=== PATIENT | female | born 1950 | race Caucasian/White ===

== ENCOUNTER → 2016-04-19 | Outpatient (CLI) | payer MEDICARE ==
--- NOTE | 2016-04-19 16:53 | CT ---
EXAMINATION TYPE: CT abdomen pelvis w con DATE OF EXAM: 04/19/2016 4:34 PM COMPARISON: NONE HISTORY: Granuloma around region of previous PEG tube. 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 Abdominal pelvic pain K63.2, R10.9 CT DLP: 1030.00 mGycm Automated exposure control for dose reduction was used. TECHNIQUE: Helical acquisition of images from the lung bases through the pelvis have been completed. CONTRAST: Performed with Oral Contrast and with IV Contrast, patient injected with 80 mL of Visipaque 320. FINDINGS: Tract in the left upper quadrant likely due to previous PEG tube with soft tissue attenuati on extending to the subcutaneous fat to the abdominal surface anteriorly. LUNG BASES: Some minimal basilar atelectatic change or scarring is present. There is a large partial intrathoracic stomach, hiatal hernia. AORTA: No significant abnormality is appreciated. LIVER/GB: Dependent hyperdense focus within the gallbladder compatible with stone. Liver shows no mas s. PANCREAS: No significant abnormality is seen. SPLEEN: No significant abnormality is seen. ADRENALS: No significant abnormality is seen. KIDNEYS: Upper pole of the right kidney shows loss of parenchyma, there is mild caliectasis at this l evel, this is likely due to prior scarring. REPRODUCTIVE ORGANS: No significant abnormality is seen BOWEL: Nonspecific wall thickening of the colon is indeterminate, difficult to exclude a mucosal les ion, correlate to exclude colitis. FREE AIR: No Free Air visible ASCITES: None visible. PELVIC ADENOPATHY: None visualized. RETROPERITONEAL ADENOPATHY: No Retroperitoneal Adenopathy visible. URINARY BLADDER: No significant abnormality is seen. OSSEOUS STRUCTURES: No significant abnormality is seen. IMPRESSION: LARGE HIATAL HERNIA WITH INTRATHORACIC STOMACH. CHOLELITHIASIS. EVIDENCE OF PRIOR SURGERY, PEG TUBE I S NO LONGER PRESENT. PROBABLE CHRONIC SCARRING RIGHT KIDNEY. FINDINGS IN THE COLON DESCRIBED.
== END | disposition home or self-care (01) ==
LOC: RADCTMAIN 14:33
PROVIDERS: ATTEND Surgery
DX: K80.20 Calculus of gallbladder without cholecystitis without obstruction (principal); K44.9 Diaphragmatic hernia without obstruction or gangrene
CPT/HCPCS: 82565; 84520; 74177; 36415; Q9967

== ENCOUNTER 2018-08-27 16:14 | Emergency (ER) | payer MEDICARE ==
[2018-08-27 16:29] VITALS: PULSE 80; RESP 18; TEMP 98
--- NOTE | 2018-08-27 16:48 | ED ---
General Adult HPI - General Chief complaint: Recheck/Abnormal Lab/Rx Stated complaint: hypoglycemia Time Seen by Provider: 08/27/18 16:38 Source: patient Mode of arrival: EMS Limitations: no limitations - History of Present Illness Initial comments: Dictation was produced using [employer] dictation software. please excuse any grammatical, word or spelling errors. Chief Complaint: 67-year-old female past medical history of insulin-dependent diabetes mellitus since with hypoglycemic episode. History of Present Illness: Patient is a 67-year-old female she is an insulin- dependent diabetic. She takes sliding scale insulin. Patient states she gave herself 30 units today for blood sugar 149. She had breakfast. She normally then then checks her blood sugar at 5 PM. Patient reports that she woke up to family members who found her on the ground. EMS was called. Her blood sugar was checked and was found to be 41 she was given oral glucose which woke her right up. Patient denies any pain complaints at this time. Patient states she forgot to eat lunch today like she normally does. Patient has no complaints at this time. Patient denies any episode like this in the past. She is adamant that her hypoglycemia was from forgetting to eat. The ROS documented in this emergency department record has been reviewed and confirmed by me. Those systems with pertinent positive or negative responses have been documented in the HPI. All other systems are other negative and/or noncontributory. PHYSICAL EXAM: General Impression: Alert and oriented x3, not in acute distress HEENT: Normocephalic atraumatic, extra-ocular movements intact, pupils equal and reactive to light bilaterally, mucous membranes moist. Cardiovascular: Heart regular rate and rhythm, S1&S2 audible, no murmurs, rubs or gallops Chest: Lungs clear to auscultation bilaterally, no rhonchi, no wheeze, no rales Abdomen: Bowel sounds present, abdomen soft, non-tender, non-distended, no organomegaly Musculoskeletal: Pulses present and equal in all extremities, no peripheral edema Motor: no focal deficits noted Neurological: CN II-XII grossly intact, no focal motor or sensory deficits noted Skin: Intact with no visualized rashes Psych: Normal affect and mood ED course: 67-year-old female presents with hypoglycemic episode. She was found unresponsive. Blood sugar upon EMS arrival was 41. She is given glucose. The glucose was checked again responded to 20. Patient tolerate by mouth at bedside. Vital signs upon arrival are within acceptable limits. Patient has no complaints at this time. Physical examination is benign.Patient reevaluated and found to be in stable medical condition. Patient warned about the dangers of hypoglycemia and taking insulin without proper glucose intake. She understands. Repeat blood glucose was obtained on a bee and except limits. Patient clear for discharge. Parameters discussed. Patient understandable agreeable to disposition. - Related Data Home Medications Medication Instructions Recorded Confirmed Glucagon Emergency Kit 1 mg IM ONCE PRN 08/27/18 08/27/18 Ibandronate Sodium [Boniva] 150 mg PO Q30D 08/27/18 08/27/18 Insulin Glargine,Hum.rec.anlog 11 unit SQ HS 08/27/18 08/27/18 [Lantus Solostar] Insulin Lispro [humaLOG Kwikpen] 13 unit SQ AC-TID 08/27/18 08/27/18 Insulin Lispro [humaLOG Kwikpen] See Protocol SQ AC-TID 08/27/18 08/27/18 Lacosamide [Vimpat] 200 mg PO BID 08/27/18 08/27/18 Sertraline [Zoloft] 50 mg PO DAILY 08/27/18 08/27/18 Simvastatin [Zocor] 20 mg PO HS 08/27/18 08/27/18 Valsartan/Hydrochlorothiazide 1 tab PO DAILY 08/27/18 08/27/18 [Valsartan-Hctz 320-25 mg Tab] amLODIPine [Norvasc] 5 mg PO DAILY 08/27/18 08/27/18 Allergies Allergy/AdvReac Type Severity Reaction Status Date / Time No Known Allergies Allergy Verified 08/27/18 16:32 Review of Systems ROS Statement: Those systems with pertinent positive or pertinent negative responses have been documented in the HPI. ROS Other: All systems not noted in ROS Statement are negative. Past Medical History Past Medical History: Diabetes Mellitus, Seizure Disorder, Thyroid Disorder History of Any Multi-Drug Resistant Organisms: None Reported Additional Past Surgical History / Comment(s): trach Past Psychological History: No Psychological Hx Reported Smoking Status: Never smoker Past Alcohol Use History: None Reported Past Drug Use History: None Reported General Exam Limitations: no limitations Course Vital Signs 08/27/18 16:23 Temperature 98.0 F Pulse Rate 80 Respiratory 18 Rate Blood Pressure 178/86 O2 Sat by Pulse 97 Oximetry Medical Decision Making - Lab Data Result diagrams: 08/27/18 16:58 08/27/18 16:58 Lab Results 08/27/18 08/27/18 Range/Units 16:58 16:58 WBC 13.9 H (3.8-10.6) k/uL RBC 4.92 (3.80-5.40) m/uL Hgb 14.3 (11.4-16.0) gm/dL Hct 44.0 (34.0-46.0) % MCV 89.5 (80.0-100.0) fL MCH 29.0 (25.0-35.0) pg MCHC 32.4 (31.0-37.0) g/dL RDW 13.8 (11.5-15.5) % Plt Count 243 (150-450) k/uL Neutrophils % 90 % Lymphocytes % 6 % Monocytes % 3 % Eosinophils % 1 % Basophils % 0 % Neutrophils # 12.5 H (1.3-7.7) k/uL Lymphocytes # 0.9 L (1.0-4.8) k/uL Monocytes # 0.4 (0-1.0) k/uL Eosinophils # 0.1 (0-0.7) k/uL Basophils # 0.0 (0-0.2) k/uL Sodium 138 (137-145) mmol/L Potassium 3.6 (3.5-5.1) mmol/L Chloride 105 (98-107) mmol/L Carbon Dioxide 25 (22-30) mmol/L Anion Gap 8 mmol/L BUN 23 H (7-17) mg/dL Creatinine 0.94 (0.52-1.04) mg/dL Est GFR (CKD-EPI)AfAm 73 (>60 ml/min/1.73 sqM) Est GFR (CKD-EPI)NonAf 63 (>60 ml/min/1.73 sqM) Glucose 232 H (74-99) mg/dL Calcium 9.3 (8.4-10.2) mg/dL Total Bilirubin 0.3 (0.2-1.3) mg/dL AST 25 (14-36) U/L ALT 41 (9-52) U/L Alkaline Phosphatase 134 H (38-126) U/L Total Protein 6.9 (6.3-8.2) g/dL Albumin 4.1 (3.5-5.0) g/dL Disposition Clinical Impression: Hypoglycemia Disposition: HOME SELF-CARE Condition: Good Instructions (If sedation given, give patient instructions): Hypoglycemia in a Person with Diabetes (ED) Is patient prescribed a controlled substance at d/c from ED?: No Referrals: Brian Mcpherson MD [Primary Care Provider] - 1-2 days Time of Disposition: 17:37
[2018-08-27 17:06] LABS: Basophils % (A) 0 %; Eosinophils # (A) 0.1 k/uL (0-0.7); Eosinophils % (A) 1 %; HGB 14.3 gm/dL (11.4-16.0); Lymphocytes # (A) 0.9 k/uL (1.0-4.8); Lymphocytes % (A) 6 %; MCHC 32.4 g/dL (31.0-37.0); MCV 89.5 fL (80.0-100.0); Mean Platelet Volume 7.7; Monocytes # (A) 0.4 k/uL (0-1.0); Monocytes % (A) 3 %; Neutrophils # (A) 12.5 k/uL (1.3-7.7); Neutrophils % (A) 90 %; Platelet Count 243 k/uL (150-450); RBC 4.92 m/uL (3.80-5.40); RDW 13.8 % (11.5-15.5); WBC 13.9 k/uL (3.8-10.6)
[2018-08-27 17:17] LABS: Albumin 4.1 g/dL (3.5-5.0); Calcium 9.3 mg/dL (8.4-10.2); Potassium 3.6 mmol/L (3.5-5.1); Total Bilirubin 0.3 mg/dL (0.2-1.3); Total Protein 6.9 g/dL (6.3-8.2)
[2018-08-27 18:12] VITALS: BP 138/73
[2018-08-27 18:17] LABS: Glucose,Whole Blood 295 mg/dL (75-99)
[2018-08-28 07:51] LABS: Glucose,Whole Blood 202 mg/dL (75-99)
== END 2018-08-27 18:08 | disposition home or self-care (01) ==
LOC: EC 16:14
DX: E11.649 Type 2 diabetes mellitus with hypoglycemia without coma (principal); G40.909 Epilepsy, unspecified, not intractable, without status epilepticus; Z79.4 Long term (current) use of insulin; Z79.899 Other long term (current) drug therapy
CPT/HCPCS: 36415; 80053; 85025; 99285

== ENCOUNTER 2019-07-17 13:35 | Emergency (ER) | payer MEDICARE ==
[2019-07-17 13:40] LABS: Glucose,Whole Blood 126 mg/dL (75-99)
[2019-07-17 13:45] VITALS: PULSE 74; RESP 18
[2019-07-17] MEDS ORDERED: LIDOCAINE 1% INJ 10MG/ML (20 ML MDV) SQ STA (13:55)
--- NOTE | 2019-07-17 15:15 | CT ---
EXAMINATION TYPE: CT brain catherine wo con DATE OF EXAM: 07/17/2019 COMPARISON: None HISTORY: Fall, right surparorbital injury. CT DLP: 1307.4 mGycm, Automated exposure control for dose reduction was used. CONTRAST: Patient injected with 0 mL of Isovue 300. CT of the brain is performed utilizing 3 mm thick sections through the posterior fossa and 3 mm thick sections through the remaining calvarium. Study is performed within 24 hours of arrival to the hospital. No abnormal hyperdensity is present to suggest an acute intracranial hemorrhage. No mass lesion is evident. No acute infarcts are evident. Ventricles and sulci are appropriate for the patient age. Paranasal sinuses and mastoid air cells within the [id number] are clear. There is superficial soft tissue swelling over the frontal and right supraorbital regions. No underly ing fracture is evident of the frontal bone. Subcutaneous air is present. Note is made of a nasal bone fracture with some displacement left lateral direction. Ethmoid air cell s appear intact. Orbital floors as visualized appear intact IMPRESSIONS: 1. No acute intracranial process. 2. Nasal bone fractures with some displacement of the left lateral direction. CT cervical spine. COMPARISON: None CT of the cervical spine is performed in the axial plane at 2 mm thick sections. Reconstructed image s in the coronal, and sagittal plane are reviewed on the computer. No acute fractures are evident. Vertebral body alignment is normal. There is loss of disc height C3-4 C4-5 C5-6. Some endplate spurring is present at C5 Vertebral body heights are preserved. There is right paracentral endplate spurring at C5 with moderate anterior thecal sac compression. AP spinal canal stenosis is not present. Uncovertebral joint hypertrophy C5-6 has mild to moderate bilat eral foraminal stenosis at this level. Uncovertebral joint hypertrophy at C4-5 has moderate bilateral foraminal stenosis. IMPRESSIONS: 1. No acute osseous abnormality cervical spine. 2. Degenerative disc changes C3-4 through C6-7. 3. Right paracentral endplate spurring at C5 has moderate anterior thecal sac compression without AP spinal canal stenosis. 4. Uncovertebral joint hypertrophy with mild to moderate foraminal narrowing C5-6 and moderate forami nal narrowing C4-5.
[2019-07-17] MEDS ORDERED: AMOXIC-POT CLAV 875MG STARTER PACK 2 TAB BTL PO STA (16:07)
--- NOTE | 2019-07-17 16:07 | ED ---
Fall HPI - General Chief Complaint: Fall Stated Complaint: Fall, head injury Time Seen by Provider: 07/17/19 13:36 Source: patient, EMS Mode of arrival: EMS - Related Data Home Medications Medication Instructions Recorded Confirmed Ibandronate Sodium [Boniva] 150 mg PO Q30D 08/27/18 07/17/19 Lacosamide [Vimpat] 200 mg PO BID 08/27/18 07/17/19 Valsartan/Hydrochlorothiazide 1 tab PO DAILY 08/27/18 07/17/19 [Valsartan-Hctz 320-25 mg Tab] amLODIPine [Norvasc] 5 mg PO DAILY 08/27/18 07/17/19 Atorvastatin Calcium [Lipitor] 20 mg PO DAILY 07/17/19 07/17/19 Insulin Lispro [humaLOG Kwikpen] See Protocol SQ TID 07/17/19 07/17/19 Sertraline HCl [Zoloft] 25 mg PO DAILY 07/17/19 07/17/19 Previous Rx's Medication Instructions Recorded Amoxicillin/Potassium Clav 1 each PO Q12HR 7 Days #14 tab 07/17/19 [Augmentin 875-125 Tablet] Allergies Allergy/AdvReac Type Severity Reaction Status Date / Time No Known Allergies Allergy Verified 07/17/19 15:27 Review of Systems ROS Statement: Those systems with pertinent positive or pertinent negative responses have been documented in the HPI. ROS Other: All systems not noted in ROS Statement are negative. Past Medical History Past Medical History: Diabetes Mellitus, Seizure Disorder, Thyroid Disorder History of Any Multi-Drug Resistant Organisms: None Reported Additional Past Surgical History / Comment(s): trach Past Psychological History: No Psychological Hx Reported Smoking Status: Never smoker Past Alcohol Use History: None Reported Past Drug Use History: None Reported General Exam Limitations: no limitations Course Vital Signs 07/17/19 07/17/19 13:41 16:26 Temperature 97.5 F L 98.1 F Pulse Rate 74 74 Respiratory 18 18 Rate Blood Pressure 155/81 153/71 O2 Sat by Pulse 100 98 Oximetry - Reevaluation(s) Reevaluation #1: 07/17/19 16:07 PA supervision: I pursued [id number] evaluation the patient she states she did fall striking her forehead she initially declined any imaging studies. She later did want them CAT scan is performed showing no acute findings patient does have a 4 head laceration which will be repaired. Patient is awake alert oriented 3 Natalia Coma Scale of 15. I do agree with the assessment and plan. Medical Decision Making - Lab Data Lab Results 07/17/19 07/17/19 Range/Units 13:38 16:07 POC Glucose (mg/dL) 126 H 82 (75-99) mg/dL POC Glu Manager [employer] Mi Frey Joanna Disposition Clinical Impression: Fall, Nose fracture, Hypoglycemia Disposition: HOME SELF-CARE Condition: Stable Instructions (If sedation given, give patient instructions): Nasal Fracture (ED), Hypoglycemia in a Person with Diabetes (ED), Fall Prevention (ED) Additional Instructions: Take antibiotics as directed. Follow-up with primary care provider and ENT tomorrow. Return to ER if condition worsens. Please return for suture removal: Hand: 7-10 days Face: 5 days Chest/abdomen: 12-14 days Extremities: 7-10 days Scalp: 7 days Eyebrow: 5-7 days Foot/sole: 12-14 days Please monitor for signs and symptoms of infection including: redness, warmth, drainage, discharge. Please return to ED if these signs or symptoms occur, new signs or symptoms develop or if condition worsens in anyway. Prescriptions: Amoxicillin/Potassium Clav [Augmentin 875-125 Tablet] 1 each PO Q12HR 7 Days #14 tab Is patient prescribed a controlled substance at d/c from ED?: No Referrals: Glynn Manning MD [STAFF PHYSICIAN] - 1-2 days Brian Mcpherson MD [Primary Care Provider] - 1-2 days Del Mccormack MD [STAFF PHYSICIAN] - 1-2 days
--- NOTE | 2019-07-17 16:08 | ED ---
General Adult HPI - General Chief complaint: Fall Stated complaint: Fall, head injury Time Seen by Provider: 07/17/19 13:36 Source: patient, EMS, RN notes reviewed, old records reviewed Mode of arrival: EMS Limitations: no limitations - History of Present Illness Initial comments: 68-year-old female patient past history of diabetes presents to ED for chief complaint of fall. Patient ports that she does take sliding scale insulin as well as long acting Lantus. Reports that she had not eaten this morning. Patient reports that she started in her bathroom felt dizzy fell, hitting her face on the counter. I believe that she lost consciousness. Call for her daughter, daughter came to her bleeding, called EMS. When EMS came patient had a blood sugar of 50. She was given apple juice and increase to 120. Patient does have a laceration to her forehead. Reports a tetanus updated the last 3 years. Denies any other complaints. Denies any headache changes in vision neck pain. Systemic: Pt denies fatigue, fever/chills, rash. Pt denies weakness, night sweats, weight loss. Neuro: Pt denies headache, visual disturbances, syncope or pre-syncope. HEENT: Pt denies ocular discharge or irritation, otalgia, rhinorrhea, pharyngitis or notable lymphadenopathy. Cardiopulmonary: Pt denies chest pain, SOB, heart palpitations, dyspnea on exertion. Abdominal/GI: Pt denies abdominal pain, n/v/d. : Pt denies dysuria, burning w/ urination, frequency/urgency. Denies new onset urinary or bowel incontinence. MSK: Pt denies myalgia, loss of strength or function in extremities. Neuro: Pt denies new onset weakness, paresthesias. - Related Data Home Medications Medication Instructions Recorded Confirmed Ibandronate Sodium [Boniva] 150 mg PO Q30D 08/27/18 07/17/19 Lacosamide [Vimpat] 200 mg PO BID 08/27/18 07/17/19 Valsartan/Hydrochlorothiazide 1 tab PO DAILY 08/27/18 07/17/19 [Valsartan-Hctz 320-25 mg Tab] amLODIPine [Norvasc] 5 mg PO DAILY 08/27/18 07/17/19 Atorvastatin Calcium [Lipitor] 20 mg PO DAILY 07/17/19 07/17/19 Insulin Lispro [humaLOG Kwikpen] See Protocol SQ TID 07/17/19 07/17/19 Sertraline HCl [Zoloft] 25 mg PO DAILY 07/17/19 07/17/19 Previous Rx's Medication Instructions Recorded Amoxicillin/Potassium Clav 1 each PO Q12HR 7 Days #14 tab 07/17/19 [Augmentin 875-125 Tablet] Allergies Allergy/AdvReac Type Severity Reaction Status Date / Time No Known Allergies Allergy Verified 07/17/19 15:27 Review of Systems ROS Statement: Those systems with pertinent positive or pertinent negative responses have been documented in the HPI. ROS Other: All systems not noted in ROS Statement are negative. Past Medical History Past Medical History: Diabetes Mellitus, Seizure Disorder, Thyroid Disorder History of Any Multi-Drug Resistant Organisms: None Reported Additional Past Surgical History / Comment(s): trach Past Psychological History: No Psychological Hx Reported Smoking Status: Never smoker Past Alcohol Use History: None Reported Past Drug Use History: None Reported General Exam - General Exam Comments Initial Comments: Constitutional: NAD, AOX3, Pt has pleasant affect. HEENT: NC/AT, trachea midline, neck supple, no lymphadenopathy. Posterior pharynx non erythematous, without exudates. External ears appear normal, without discharge. Mucous membranes moist. Eyes PERRLA, EOM intact. There is no scleral icterus. No pallor noted. Cardiopulmonary: RRR, no murmurs, rubs or gallops, no JVD noted. Lungs CTAB in anterior and posterior romero. No peripheral edema. Abdominal exam: Abdomen soft and non-distended. Abdomen non-tender to palpation in all 4 quadrants. Bowel sounds active in LLQ. No hepatosplenomegaly. No ecchymosis Neuro: CN II-XII intact. No nuchal rigidity. No raccon eyes, no ho sign, no hemotympanum. No cervical spinal tenderness. MSK: 5 cm stellate laceration forehead. Vigorously irrigated approximated with 5 simple interrupted sutures. Abrasion to bridge of nose. No septal hematoma. No posterior calf tenderness bilaterally, homans sign negative bilaterally. Posterior tibialis and radial pulse +2 bilaterally. Sensation intact in upper and lower extremities. Full active ROM in upper and lower extremities, 5/5 stregnth. Limitations: no limitations Course Vital Signs 07/17/19 13:41 Temperature 97.5 F L Pulse Rate 74 Respiratory 18 Rate Blood Pressure 155/81 O2 Sat by Pulse 100 Oximetry Procedures - Laceration Laceration #1 Consent Obtained: verbal consent Indication: laceration Site: face Size (cm): 5 Description: stellate Depth: simple, single layer Anesthetic Used: lidocaine 1% Anesthesia Technique: local infiltration Amount (mls): 3 Pre-repair: wound explored, irrigated extensively, deep structures intact Type of Sutures: nylon Size of Sutures: 6-0 Number of Sutures: 5 Technique: simple, interrupted Patient Tolerated Procedure: well, no complications Medical Decision Making - Medical Decision Making 68-year-old female patient past history of diabetes presents to ED for chief complaint of fall. Patient ports that she does take sliding scale insulin as well as long acting Lantus. Reports that she had not eaten this morning. Patient reports that she started in her bathroom felt dizzy fell, hitting her face on the counter. I believe that she lost consciousness. Call for her daughter, daughter came to her bleeding, called EMS. When EMS came patient had a blood sugar of 50. She was given apple juice and increase to 120. Patient does have a laceration to her forehead. Reports a tetanus updated the last 3 years. Denies any other complaints. Denies any headache changes in vision neck pain. Pt VSS, afebrile. Physical exam displayed: 5 cm stellate laceration forehead. Vigorously irrigated approximated with 5 simple interrupted sutures. Abrasion to bridge of nose. No septal hematoma. 5 cm stellate laceration forehead. Vigorously irrigated approximated with 5 simple interrupted sutures. Abrasion to bridge of nose. No septal hematoma. Patient initially declined any sort of intracranial imaging. Upon repeat evaluation patient was complaining of some mild neck pain. Intracranial imaging was again recommended and she did consent. CT of the brain slight nasal bone fracture with some displacement in the left lateral direction. CT cervical spine didn't display any acute osseous abnormality. Degenerative disc changes are noted. Bloodsugar 126. Laceration was repaired patient will be started on Augmentin of discharge and primary care follow-up as well as ENT follow-up. Patient fall likely hypoglycemic in nature, education patient in regards to eating and morning due to long-acting insulin. Case discussed in depth and patient seen by Dr. Torres. - Lab Data Lab Results 07/17/19 Range/Units 13:38 POC Glucose (mg/dL) 126 H (75-99) mg/dL POC Glu Draw [employer] Operator ID Mi Juarez Disposition Clinical Impression: Fall, Nose fracture, Hypoglycemia Disposition: HOME SELF-CARE Condition: Stable Instructions (If sedation given, give patient instructions): Fall Prevention (ED), Hypoglycemia in a Person with Diabetes (ED), Nasal Fracture (ED) Additional Instructions: Take antibiotics as directed. Follow-up with primary care provider and ENT tomorrow. Return to ER if condition worsens. Please return for suture removal: Hand: 7-10 days Face: 5 days Chest/abdomen: 12-14 days Extremities: 7-10 days Scalp: 7 days Eyebrow: 5-7 days Foot/sole: 12-14 days Please monitor for signs and symptoms of infection including: redness, warmth, drainage, discharge. Please return to ED if these signs or symptoms occur, new signs or symptoms develop or if condition worsens in anyway. Prescriptions: Amoxicillin/Potassium Clav [Augmentin 875-125 Tablet] 1 each PO Q12HR 7 Days #14 tab Is patient prescribed a controlled substance at d/c from ED?: No Referrals: Brian Mcpherson MD [Primary Care Provider] - 1-2 days Glynn Manning MD [STAFF PHYSICIAN] - 1-2 days Del Mccormack MD [STAFF PHYSICIAN] - 1-2 days
[2019-07-17 16:09] LABS: Glucose,Whole Blood 82 mg/dL (75-99)
[2019-07-17 16:27] VITALS: BP 153/71; TEMP 98.1
== END 2019-07-17 16:27 | disposition home or self-care (01) ==
LOC: EC 13:35
DX: S01.81XA Laceration without foreign body of other part of head, initial encounter (principal); S02.2XXA Fracture of nasal bones, initial encounter for closed fracture; E11.649 Type 2 diabetes mellitus with hypoglycemia without coma; G40.909 Epilepsy, unspecified, not intractable, without status epilepticus; Z79.4 Long term (current) use of insulin; Z79.899 Other long term (current) drug therapy; W18.09XA Striking against other object with subsequent fall, initial encounter
CPT/HCPCS: 36415; 72125; 70450; 99284; 12013; J2001

== ENCOUNTER 2023-06-29 00:29 | Emergency (ER) | payer MEDICARE ==
[2023-06-29 00:38] VITALS: RESP 16; TEMP 98.5
[2023-06-29 00:46] LABS: Glucose,Whole Blood 111 mg/dL (70-110)
--- NOTE | 2023-06-29 01:39 | ED ---
Recheck HPI - General Chief Complaint: Recheck/Abnormal Lab/Rx Stated Complaint: Hypoglycemia Time Seen by Provider: 06/29/23 00:34 Source: patient, EMS Mode of arrival: EMS Limitations: no limitations - History of Present Illness Initial Comments: Leena is a pleasant 72-year-old female with a history of insulin-dependent diabetes who presents to the ER today via EMS for treatment of hypoglycemia. Patient reports that she took her usual insulin dose yesterday evening, she states she drank some apple juice that did not seem to sit well in her stomach and then ate dinner but got nauseated and vomited up her dinner. During the evening she was found to be hypoglycemic EMS arrived on scene got her to drink some orange juice and eat half a peanut butter sandwich her glucose improved transiently to the 90s but then dipped to the 50s again they decided to bring her to the hospital for further evaluation. Patient was reporting nausea and route was treated with Zofran. Upon arrival patient is awake alert and oriented her glucose has improved after half amp of D50 but she continues to have nausea and vomiting. - Related Data Home Medications Medication Instructions Recorded Confirmed Ibandronate Sodium [Boniva] 150 mg PO Q30D 08/27/18 07/17/19 Lacosamide [Vimpat] 200 mg PO BID 08/27/18 07/17/19 Valsartan/Hydrochlorothiazide 1 tab PO DAILY 08/27/18 07/17/19 [Valsartan-Hctz 320-25 mg Tab] amLODIPine [Norvasc] 5 mg PO DAILY 08/27/18 07/17/19 Atorvastatin Calcium [Lipitor] 20 mg PO DAILY 07/17/19 07/17/19 Insulin Lispro [humaLOG Kwikpen] See Protocol SQ TID 07/17/19 07/17/19 Sertraline HCl [Zoloft] 25 mg PO DAILY 07/17/19 07/17/19 Previous Rx's Medication Instructions Recorded Amoxicillin/Potassium Clav 1 each PO Q12HR 7 Days #14 tab 07/17/19 [Augmentin 875-125 Tablet] Allergies Allergy/AdvReac Type Severity Reaction Status Date / Time No Known Allergies Allergy Verified 07/17/19 15:27 Review of Systems ROS Statement: Those systems with pertinent positive or pertinent negative responses have been documented in the HPI. ROS Other: All systems not noted in ROS Statement are negative. Past Medical History Past Medical History: Diabetes Mellitus, Seizure Disorder, Thyroid Disorder History of Any Multi-Drug Resistant Organisms: None Reported Additional Past Surgical History / Comment(s): trach Past Psychological History: No Psychological Hx Reported Past Alcohol Use History: None Reported Past Drug Use History: None Reported General Exam - General Exam Comments Initial Comments: Physical Exam GENERAL: Patient is well-developed and well-nourished. Patient is nontoxic and well-hydrated and is in no distress. HENT: Normocephalic, Atraumatic. EYES: PERRL, EOMI PULMONARY: Unlabored respirations. CARDIOVASCULAR: RRR Warm and well perfused extremities ABDOMEN: Non-distended SKIN: No rashes or bruising : Deferred NEUROLOGIC: Alert and oriented Normal speech Normal gait MUSCULOSKELETAL: Moving all extremities with no apparent injury PSYCHIATRIC: No SI/HI Limitations: no limitations Course Vital Signs 06/29/23 06/29/23 06/29/23 00:31 01:40 02:25 Temperature 98.5 F Pulse Rate 79 70 61 Respiratory 16 16 16 Rate Blood Pressure 159/78 156/65 157/74 O2 Sat by Pulse 99 98 98 Oximetry 06/29/23 06/29/23 03:38 04:58 Temperature Pulse Rate 77 70 Respiratory 16 16 Rate Blood Pressure 134/90 126/78 O2 Sat by Pulse 97 97 Oximetry Medical Decision Making - Medical Decision Making Was pt. sent in by a medical professional or institution (SHAHANA Lopez, DOWEL INSPECTOR, urgent care, hospital, or [facility]...) When possible be specific @ -No Did you speak to anyone other than the patient for history (EMS, parent, family, police, friend...)? What history was obtained from this source @ -EMS Did you review nursing and triage notes (agree or disagree)? Why? @ -I reviewed and agree with nursing and triage notes Were old charts reviewed (outside hosp., previous admission, EMS record, old EKG, old radiological studies, urgent care reports/EKG's, [facility] records)? Report findings @ -No old charts were reviewed Differential Diagnosis (chest pain, altered mental status, abdominal pain women, abdominal pain men, vaginal bleeding, weakness, fever, dyspnea, syncope, headache, dizziness, GI bleed, back pain, seizure, CVA, palpatations, mental health)? @ -Not applicable EKG interpreted by me (3pts min.). @ -As above X-rays interpreted by me (1pt min.). @ -None done CT interpreted by me (1pt min.). @ -None done U/S interpreted by me (1pt. min.). @ -None done What testing was considered but not performed or refused? (CT, X-rays, U/S, labs)? Why? @ -None What meds were considered but not given or refused? Why? @ -None Did you discuss the management of the patient with other professionals (pr ofessionals i.e. , PA, DOWEL INSPECTOR, lab, RT, psych nurse, social group worker, front edger, teacher, flight deck officer, rn case manager)? Give summary @ -No Was smoking cessation discussed for >3mins.? @ -No Was critical care preformed (if so, how long)? @ -No Were there social determinants of health that impacted care today? How? (Homelessness, low income, unemployed, alcoholism, drug addiction, transportation, low edu. Level, literacy, decrease access to med. care, longterm, rehab)? @ -No Was there de-escalation of care discussed even if they declined (Discuss DNR or withdrawal of care, Hospice)? DNR status @ -No What co-morbidities impacted this encounter? (DM, HTN, Smoking, COPD, CAD, Cancer, CVA, ARF, Chemo, Hep., AIDS, mental health diagnosis, sleep apnea, morbid obesity)? @ -Diabetes Was patient admitted / discharged? Hospital course, mention meds given and route, prescriptions, significant lab abnormalities, going to OR and other pertinent info. @ -Discharged The patient was seen and evaluated, history was obtained from the patient and EMS. Insulin-dependent diabetes who took her insulin but then had vomiting did not keep down any of her dinner and subsequently had some hypoglycemia. Patient continues to have nausea and vomiting was treated with Pepcid. She has been able to hold down food here in the ER her glucose has been stable. Patient reports feeling better and is stable for discharge home. Undiagnosed new problem with uncertain prognosis? @ -No Drug Therapy requiring intensive monitoring for toxicity (Heparin, Nitro, Insulin, Cardizem)? @ -No Were any procedures done? @ -No Diagnosis/symptom? @ -Hypoglycemia and diabetic due to insulin Acute, or Chronic, or Acute on Chronic? @ -Acute Uncomplicated (without systemic symptoms) or Complicated (systemic symptoms)? @ -Default Side effects of treatment? @ -No Exacerbation, Progression, or Severe Exacerbation? @ -No Poses a threat to life or bodily function? How? (Chest pain, [place], [place], pneumonia, PE, COPD, DKA, ARF, appy, cholecystitis, CVA, Diverticulitis, Homicidal, Suicidal, threat to staff... and all critical care pts) @ -Potentially however has improved - Lab Data Result diagrams: 06/29/23 01:54 06/29/23 01:54 Lab Results 06/29/23 06/29/23 06/29/23 Range/Units 00:43 01:51 01:54 WBC 10.3 (3.8-10.6) k/uL RBC 4.51 (3.80-5.40) m/uL Hgb 13.2 (11.4-16.0) gm/dL Hct 40.2 (34.0-46.0) % MCV 89.2 (80.0-100.0) fL MCH 29.2 (25.0-35.0) pg MCHC 32.7 (31.0-37.0) g/dL RDW 13.2 (11.5-15.5) % Plt Count 256 (150-450) k/uL MPV 9.0 Neutrophils % 83 % Lymphocytes % 12 % Monocytes % 4 % Eosinophils % 0 % Basophils % 0 % Neutrophils # 8.5 H (1.3-7.7) k/uL Lymphocytes # 1.2 (1.0-4.8) k/uL Monocytes # 0.4 (0-1.0) k/uL Eosinophils # 0.0 (0-0.7) k/uL Basophils # 0.0 (0-0.2) k/uL Sodium (137-145) mmol/L Potassium (3.5-5.1) mmol/L Chloride (98-107) mmol/L Carbon Dioxide (22-30) mmol/L Anion Gap mmol/L BUN (7-17) mg/dL Creatinine (0.52-1.04) mg/dL Est GFR (CKD-EPI)AfAm (>60 ml/min/1.73 sqM) Est GFR (CKD-EPI)NonAf (>60 ml/min/1.73 sqM) Glucose (74-99) mg/dL POC Glucose (mg/dL) 111 H 80 (70-110) mg/dL POC Glu Marine Engineering Professor Padmini Jerome Mara Calcium (8.4-10.2) mg/dL Total Bilirubin (0.2-1.3) mg/dL AST (14-36) U/L ALT (4-34) U/L Alkaline Phosphatase (38-126) U/L Total Protein (6.3-8.2) g/dL Albumin (3.5-5.0) g/dL Influenza Type A (PCR) (Not Detectd) Influenza Type B (PCR) (Not Detectd) RSV (PCR) (Not Detectd) SARS-CoV-2 (PCR) (Not Detectd) 06/29/23 06/29/23 06/29/23 Range/Units 01:54 01:54 02:55 WBC (3.8-10.6) k/uL RBC (3.80-5.40) m/uL Hgb (11.4-16.0) gm/dL Hct (34.0-46.0) % MCV (80.0-100.0) fL MCH (25.0-35.0) pg MCHC (31.0-37.0) g/dL RDW (11.5-15.5) % Plt Count (150-450) k/uL MPV Neutrophils % % Lymphocytes % % Monocytes % % Eosinophils % % Basophils % % Neutrophils # (1.3-7.7) k/uL Lymphocytes # (1.0-4.8) k/uL Monocytes # (0-1.0) k/uL Eosinophils # (0-0.7) k/uL Basophils # (0-0.2) k/uL Sodium 141 (137-145) mmol/L Potassium 3.8 (3.5-5.1) mmol/L Chloride 105 (98-107) mmol/L Carbon Dioxide 24 (22-30) mmol/L Anion Gap 12 mmol/L BUN 34 H (7-17) mg/dL Creatinine 0.94 (0.52-1.04) mg/dL Est GFR (CKD-EPI)AfAm 70 (>60 ml/min/1.73 sqM) Est GFR (CKD-EPI)NonAf 61 (>60 ml/min/1.73 sqM) Glucose 103 H (74-99) mg/dL POC Glucose (mg/dL) 94 (70-110) mg/dL POC Glu Marine Engineering Professor Padmini Jerome Calcium 9.2 (8.4-10.2) mg/dL Total Bilirubin 0.2 (0.2-1.3) mg/dL AST 27 (14-36) U/L ALT 24 (4-34) U/L Alkaline Phosphatase 125 (38-126) U/L Total Protein 7.1 (6.3-8.2) g/dL Albumin 4.3 (3.5-5.0) g/dL Influenza Type A (PCR) Not Detected (Not Detectd) Influenza Type B (PCR) Not Detected (Not Detectd) RSV (PCR) Not Detected (Not Detectd) SARS-CoV-2 (PCR) Not Detected (Not Detectd) 06/29/23 06/29/23 Range/Units 04:00 05:11 WBC (3.8-10.6) k/uL RBC (3.80-5.40) m/uL Hgb (11.4-16.0) gm/dL Hct (34.0-46.0) % MCV (80.0-100.0) fL MCH (25.0-35.0) pg MCHC (31.0-37.0) g/dL RDW (11.5-15.5) % Plt Count (150-450) k/uL MPV Neutrophils % % Lymphocytes % % Monocytes % % Eosinophils % % Basophils % % Neutrophils # (1.3-7.7) k/uL Lymphocytes # (1.0-4.8) k/uL Monocytes # (0-1.0) k/uL Eosinophils # (0-0.7) k/uL Basophils # (0-0.2) k/uL Sodium (137-145) mmol/L Potassium (3.5-5.1) mmol/L Chloride (98-107) mmol/L Carbon Dioxide (22-30) mmol/L Anion Gap mmol/L BUN (7-17) mg/dL Creatinine (0.52-1.04) mg/dL Est GFR (CKD-EPI)AfAm (>60 ml/min/1.73 sqM) Est GFR (CKD-EPI)NonAf (>60 ml/min/1.73 sqM) Glucose (74-99) mg/dL POC Glucose (mg/dL) 85 99 (70-110) mg/dL POC Glu Marine Engineering Professor ID Thiago Melendrez Mara Calcium (8.4-10.2) mg/dL Total Bilirubin (0.2-1.3) mg/dL AST (14-36) U/L ALT (4-34) U/L Alkaline Phosphatase (38-126) U/L Total Protein (6.3-8.2) g/dL Albumin (3.5-5.0) g/dL Influenza Type A (PCR) (Not Detectd) Influenza Type B (PCR) (Not Detectd) RSV (PCR) (Not Detectd) SARS-CoV-2 (PCR) (Not Detectd) Disposition Clinical Impression: Hypoglycemia, Nausea and vomiting Disposition: HOME SELF-CARE Condition: Stable Is patient prescribed a controlled substance at d/c from ED?: No Referrals: None,Stated [Primary Care Provider] - 1-2 days
[2023-06-29 01:54] LABS: Glucose,Whole Blood 80 mg/dL (70-110)
[2023-06-29 02:10] LABS: Basophils % (A) 0 %; Eosinophils % (A) 0 %; HCT 40.2 % (34.0-46.0); HGB 13.2 gm/dL (11.4-16.0); Lymphocytes # (A) 1.2 k/uL (1.0-4.8); Lymphocytes % (A) 12 %; MCH 29.2 pg (25.0-35.0); MCHC 32.7 g/dL (31.0-37.0); MCV 89.2 fL (80.0-100.0); Monocytes # (A) 0.4 k/uL (0-1.0); Monocytes % (A) 4 %; Neutrophils # (A) 8.5 k/uL (1.3-7.7); Neutrophils % (A) 83 %; Platelet Count 256 k/uL (150-450); RBC 4.51 m/uL (3.80-5.40); RDW 13.2 % (11.5-15.5); WBC 10.3 k/uL (3.8-10.6)
[2023-06-29 02:20] LABS: ALT 24 U/L (4-34); AST 27 U/L (14-36); African American GFR (CKD) 70 (>60 ml/min/1.73 sqM); Albumin 4.3 g/dL (3.5-5.0); Alkaline Phosphatase 125 U/L (38-126); Anion Gap 12 mmol/L; Blood Urea Nitrogen 34 mg/dL (7-17); Calcium 9.2 mg/dL (8.4-10.2); Carbon Dioxide 24 mmol/L (22-30); Chloride 105 mmol/L (98-107); Glucose 103 mg/dL (74-99); Non-African American GFR(CKD) 61 (>60 ml/min/1.73 sqM); Potassium 3.8 mmol/L (3.5-5.1); Sodium 141 mmol/L (137-145); Total Bilirubin 0.2 mg/dL (0.2-1.3); Total Protein 7.1 g/dL (6.3-8.2)
[2023-06-29 02:59] LABS: Glucose,Whole Blood 94 mg/dL (70-110)
[2023-06-29] MEDS: FAMOTIDINE 20 MG/2 ML VIAL IV STA (03:20)
[2023-06-29 04:02] LABS: Glucose,Whole Blood 85 mg/dL (70-110)
[2023-06-29 05:12] LABS: Glucose,Whole Blood 99 mg/dL (70-110)
[2023-06-29] MEDS: ONDANSETRON 4 MG ODT STARTER PACK 2 TAB BTL PO STA (05:51)
[2023-06-29 06:14] VITALS: BP 143/68; PULSE 72
== END 2023-06-29 06:09 | disposition home or self-care (01) ==
LOC: EC 00:29
DX: E11.649 Type 2 diabetes mellitus with hypoglycemia without coma (principal); Z79.4 Long term (current) use of insulin
CPT/HCPCS: 99284; 36415; 80053; 85025; 87636; S0119

== ENCOUNTER 2023-10-18 14:10 | Emergency (ER) | payer MEDICARE ==
[2023-10-18 14:17] VITALS: BP 151/73; PULSE 84; RESP 16; TEMP 97.9
--- NOTE | 2023-10-18 14:18 | ED ---
Upper Extremity HPI - General Chief Complaint: Extremity Injury, Upper Stated Complaint: L hand fracture Time Seen by Provider: 10/18/23 14:17 Source: patient, RN notes reviewed Mode of arrival: ambulatory Limitations: no limitations - History of Present Illness Initial Comments: 73-year-old female presented to the ER with a chief complaint of left wrist injury. Patient reports she fell off her porch yesterday afternoon after tripping and she landed on her left wrist. Patient denies any head injury or loss of consciousness. She was seen by urgent care today and sent to the ER for further evaluation of xray findings. She is endorsing most of her pain over the left thumb with bruising and swelling. She denies any paresthesias to left thumb. She has not taken anything for pain at this time. Denies dizziness, lightheadedness, chest pain or shortness of breath prior to fall. No other complaints at this time. - Related Data Home Medications Medication Instructions Recorded Confirmed Ibandronate Sodium [Boniva] 150 mg PO Q30D 08/27/18 07/17/19 Lacosamide [Vimpat] 200 mg PO BID 08/27/18 07/17/19 Valsartan/Hydrochlorothiazide 1 tab PO DAILY 08/27/18 07/17/19 [Valsartan-Hctz 320-25 mg Tab] amLODIPine [Norvasc] 5 mg PO DAILY 08/27/18 07/17/19 Atorvastatin Calcium [Lipitor] 20 mg PO DAILY 07/17/19 07/17/19 Insulin Lispro [humaLOG Kwikpen] See Protocol SQ TID 07/17/19 07/17/19 Sertraline HCl [Zoloft] 25 mg PO DAILY 07/17/19 07/17/19 Previous Rx's Medication Instructions Recorded Amoxicillin/Potassium Clav 1 each PO Q12HR 7 Days #14 tab 07/17/19 [Augmentin 875-125 Tablet] Allergies Allergy/AdvReac Type Severity Reaction Status Date / Time No Known Allergies Allergy Verified 10/18/23 14:17 Review of Systems ROS Statement: Those systems with pertinent positive or pertinent negative responses have been documented in the HPI. ROS Other: All systems not noted in ROS Statement are negative. Past Medical History Past Medical History: Diabetes Mellitus, Seizure Disorder, Thyroid Disorder History of Any Multi-Drug Resistant Organisms: None Reported Additional Past Surgical History / Comment(s): trach Past Psychological History: No Psychological Hx Reported Past Alcohol Use History: None Reported Past Drug Use History: None Reported General Exam - General Exam Comments Initial Comments: Visual Physical Exam Vital signs reviewed General: Well-appearing, nontoxic, no acute distress. Head: Normocephalic, atraumatic Eyes: PERRLA, EOMI ENT: Airway patent Chest: Nonlabored breathing Skin: No visual rash, normal skin tone Neuro: Alert and oriented 3 Musculoskeletal: No gross abnormalities, edema to left thumb Limitations: no limitations General appearance: alert, in no apparent distress Respiratory exam: Present: normal lung sounds bilaterally. Absent: respiratory distress, wheezes, rales, rhonchi, stridor Cardiovascular Exam: Present: regular rate, normal rhythm, normal heart sounds. Absent: systolic murmur, diastolic murmur, rubs, gallop, clicks Extremities exam: Present: other (Significant edema with ecchymosis to left thenar eminence. 2+ left radial pulse. No anatomical snuffbox tenderness. Decreased range of motion of MCP joint due to swelling and pain.) Skin exam: Present: warm, dry, intact, normal color. Absent: rash Course Vital Signs 10/18/23 14:14 Temperature 97.9 F Pulse Rate 84 Respiratory 16 Rate Blood Pressure 151/73 O2 Sat by Pulse 96 Oximetry Procedures - Orthopedic Splinting/Casting Injury #1 Side: left Upper Extremity Injury Location: hand Upper Extremity Immobilizer: thumb spica Medical Decision Making - Medical Decision Making I performed the quick note portion of this chart. Electronically signed by Eugene Jones PA-C Was pt. sent in by a medical professional or institution (SHAHANA Lopez, PREFORMS LAMINATOR, urgent care, hospital, or long-term...) When possible be specific @ -Patient sent by urgent care for evaluation of thumb fracture. Did you speak to anyone other than the patient for history (EMS, parent, family, police, friend...)? What history was obtained from this source @ -No Did you review nursing and triage notes (agree or disagree)? Why? @ -I reviewed and agree with nursing and triage notes Were old charts reviewed (outside hosp., previous admission, EMS record, old EKG, old radiological studies, urgent care reports/EKG's, long-term records)? Report findings @ -No old charts were reviewed Differential Diagnosis (chest pain, altered mental status, abdominal pain women, abdominal pain men, vaginal bleeding, weakness, fever, dyspnea, syncope, headache, dizziness, GI bleed, back pain, seizure, CVA, palpatations, mental health, musculoskeletal)? @ -Differential Musculoskeletal: Muscular strain, contusion, ligament sprain, fracture, arthritis, septic arthritis, bursitis, cellulitis, muscle spasm, nerve compression, DVT, arterial occlusion, herpes zoster, electrolyte abnormality, tumor.... This is not meant to be in all inclusive list EKG interpreted by me (3pts min.). @ -None X-rays interpreted by me (1pt min.). @ -Left wrist and hand x-rays interpreted by me remarkable for a proximal first metacarpal fracture. CT interpreted by me (1pt min.). @ -None done U/S interpreted by me (1pt. min.). @ -None done What testing was considered but not performed or refused? (CT, X-rays, U/S, labs)? Why? @ -None What meds were considered but not given or refused? Why? @ -None Did you discuss the management of the patient with other professionals (professionals i.e. , PA, PREFORMS LAMINATOR, lab, RT, psych nurse, delinquency prevention social worker, edger operator, teacher, penal officer, case monitor)? Give summary @ -No Was smoking cessation discussed for >3mins.? @ -No Was critical care preformed (if so, how long)? @ -No Were there social determinants of health that impacted care today? How? (Homelessness, low income, unemployed, alcoholism, drug addiction, transportation, low edu. Level, literacy, decrease access to med. care, senior living, rehab)? @ -No Was there de-escalation of care discussed even if they declined (Discuss DNR or withdrawal of care, Hospice)? DNR status @ -No What co-morbidities impacted this encounter? (DM, HTN, Smoking, COPD, CAD, Cancer, CVA, ARF, Chemo, Hep., AIDS, mental health diagnosis, sleep apnea, morbid obesity)? @ -None Was patient admitted / discharged? Hospital course, mention meds given and route, prescriptions, significant lab abnormalities, going to OR and other pertinent info. @ -Discharged. 73 year old female presenting to the ER with a chief complaint of left thumb injury. History and physical exam completed. Vitals stable. Exam remarkable for significant edema and bruising to left first digit. Tenderness to palpation. No anatomical snuffbox tenderness. Left upper extremity neurovascular intact. X-rays reviewed from urgent care showing a proximal first metacarpal fracture. Digital block performed for pain management for attempt of reduction of fracture. Patient also received IM 0.5mg Dilaudid for pain control. Reduction completed with thumb spica splint placed. Patient tolerated procedure well. Advised close follow-up with orthopedics, referral given. Tylenol 3 starter pack given for pain control at home. Strict return parameters discussed. Patient discharged in stable condition. Patient verbally expressed understanding and agreed with care plan. Case discussed with ED attending, Dr. Nicholas. Undiagnosed new problem with uncertain prognosis? @ -No Drug Therapy requiring intensive monitoring for toxicity (Heparin, Nitro, Insulin, Cardizem)? @ -No Were any procedures done? @ -Yes, splint Diagnosis/symptom? @ -First metacarpal fracture Acute, or Chronic, or Acute on Chronic? @ -Acute Uncomplicated (without systemic symptoms) or Complicated (systemic symptoms)? @ -Uncomplicated Side effects of treatment? @ -No Exacerbation, Progression, or Severe Exacerbation? @ -No Poses a threat to life or bodily function? How? (Chest pain, [place], [place], pneumonia, PE, COPD, DKA, ARF, appy, cholecystitis, CVA, Diverticulitis, Homicidal, Suicidal, threat to staff... and all critical care pts) @ -No - Radiology Data Radiology results: image reviewed (From urgent care) Disposition Clinical Impression: Fracture of first metacarpal Disposition: HOME SELF-CARE Condition: Stable Instructions (If sedation given, give patient instructions): Hand Fracture (ED) Additional Instructions: Follow-up with orthopedics. Return to the ER for any new or worsening symptoms. Is patient prescribed a controlled substance at d/c from ED?: No Referrals: Garrick Edwards MD [Primary Care Provider] - 1-2 days Nino Jimenez DO [Doctor of Osteopathic Medicine] - 1-2 days Time of Disposition: 15:18
[2023-10-18] MEDS: HYDROmorphone 0.5 MG/0.5 ML SYRINGE IM STA (15:13)
[2023-10-18] MEDS: LIDOCAINE 1% INJ 10MG/ML (20 ML MDV) SQ ONE (15:15)
[2023-10-18] MEDS: ACET/COD 300 MG/30 MG STARTER PACK 6 TAB BTL PO STA (15:24)
== END 2023-10-18 15:29 | disposition home or self-care (01) ==
LOC: EC 14:10
DX: S62.292A Other fracture of first metacarpal bone, left hand, initial encounter for closed fracture (principal); W13.0XXA Fall from, out of or through balcony, initial encounter
CPT/HCPCS: 26605; 99283; 96372; J2001; J1170

== ENCOUNTER 2024-06-08 13:11 | Observation (INO) | payer MEDICARE ==
--- NOTE | 2024-06-08 13:53 | ED ---
General Adult HPI - General Chief complaint: Weakness Stated complaint: weakness Time Seen by Provider: 06/08/24 13:20 Source: patient, RN notes reviewed, old records reviewed Mode of arrival: EMS Limitations: no limitations - History of Present Illness Initial comments: This is a 73-year-old female who presents to the emergency department stating that she has been weak for 4 days. Patient states she went to [facility] yesterday for the same complaint and she is not sure what they diagnosed her with. Patient states she has not had any fever chills but she is just seems to be getting weaker and weaker. Patient states yesterday she vomit ed once and today she did have diarrhea. Patient denies any chest pain or difficulty breathing. Patient has any abdominal pain patient denies any headache patient has numbness weakness. Patient has any injury or trauma - Related Data Home Medications Medication Instructions Recorded Confirmed Ibandronate Sodium [Boniva] 150 mg PO Q30D 08/27/18 07/17/19 Lacosamide [Vimpat] 200 mg PO BID 08/27/18 07/17/19 Valsartan/Hydrochlorothiazide 1 tab PO DAILY 08/27/18 07/17/19 [Valsartan-Hctz 320-25 mg Tab] amLODIPine [Norvasc] 5 mg PO DAILY 08/27/18 07/17/19 Atorvastatin Calcium [Lipitor] 20 mg PO DAILY 07/17/19 07/17/19 Insulin Lispro [humaLOG Kwikpen] See Protocol SQ TID 07/17/19 07/17/19 Sertraline HCl [Zoloft] 25 mg PO DAILY 07/17/19 07/17/19 Previous Rx's Medication Instructions Recorded Amoxicillin/Potassium Clav 1 each PO Q12HR 7 Days #14 tab 07/17/19 [Augmentin 875-125 Tablet] Allergies Allergy/AdvReac Type Severity Reaction Status Date / Time No Known Allergies Allergy Verified 06/08/24 13:31 Review of Systems ROS Statement: Those systems with pertinent positive or pertinent negative responses have been documented in the HPI. ROS Other: All systems not noted in ROS Statement are negative. Past Medical History Past Medical History: Diabetes Mellitus, Seizure Disorder, Thyroid Disorder History of Any Multi-Drug Resistant Organisms: None Reported Additional Past Surgical History / Comment(s): trach Past Psychological History: No Psychological Hx Reported Smoking Status: Never smoker Past Alcohol Use History: None Reported Past Drug Use History: None Reported General Exam - General Exam Comments Initial Comments: GENERAL: Patient is well-developed and well-nourished. Patient is nontoxic and well- hydrated and is in mild distress. ENT: Neck is soft and supple. No significant lymphadenopathy is noted. Oropharynx is clear. Moist mucous membranes. Neck has full range of motion without eliciting any pain. EYES: The sclera were anicteric and conjunctiva were pink and moist. Extraocular movements were intact and pupils were equal round and reactive to light. Eyelids were unremarkable. PULMONARY: Unlabored respirations. Good breath sounds bilaterally. No audible rales rhonchi or wheezing was noted. CARDIOVASCULAR: There is a regular rate and rhythm without any murmurs gallops or rubs. ABDOMEN: Soft and nontender with normal bowel sounds. SKIN: Skin is clear with no lesions or rashes and otherwise unremarkable. NEUROLOGIC: Patient is alert and oriented x3. Cranial nerves II through XII are grossly intact. Motor and sensory are also intact. Normal speech, volume and content. Symmetrical smile. MUSCULOSKELETAL: Normal extremities with adequate strength and full range of motion. LYMPHATICS: No significant lymphadenopathy is noted PSYCHIATRIC: Normal psychiatric evaluation. Limitations: no limitations Course Vital Signs 06/08/24 13:19 Temperature 99.4 F Pulse Rate 104 H Respiratory 18 Rate Blood Pressure 166/66 O2 Sat by Pulse 96 Oximetry Medical Decision Making - Medical Decision Making EKG is interpreted by myself and EKG was shows a sinus rhythm at 99 bpm ND 150 QRS is 94 QT interval 345 QTc is 401. Patient's EKG shows no ST segment elevation Was pt. sent in by a medical professional or institution (SHAHANA Lopez, MANUAL TESTER, urgent care, hospital, or snf...) When possible be specific @ -No Did you speak to anyone other than the patient for history (EMS, parent, family, police, friend...)? What history was obtained from this source @ -No Did you review nursing and triage notes (agree or disagree)? Why? @ -I reviewed and agree with nursing and triage notes Were old charts reviewed (outside hosp., previous admission, EMS record, old EKG, old radiological studies, urgent care reports/EKG's, snf records)? Report findings @ -No old charts were reviewed Differential Diagnosis? @ -Differential Weakness: Hypoglycemia, shock, sepsis, hyponatremia, anemia, infection, ND, ETOH, adverse medicine reaction, overdose, stroke, this is not meant to be an all-inclusive list. EKG interpreted by me (3pts min.). @ -As above X-rays interpreted by me (1pt min.). @ -Chest x-ray showed no acute abnormality CT interpreted by me (1pt min.). @ -None done U/S interpreted by me (1pt. min.). @ -None done What testing was considered but not performed or refused? (CT, X-rays, U/S, labs)? Why? @ -None What meds were considered but not given or refused? Why? @ -None Did you discuss the management of the patient with other professionals (professionals i.e. , PA, MANUAL TESTER, lab, RT, psych nurse, geriatric social worker, verification clerk, teacher, protection officer, nurse outreach case manager)? Give summary @ -I spoke with sound physicians he agreed to admit the patient. Was smoking cessation discussed for >3mins.? @ -No Was critical care preformed (if so, how long)? @ -No Were there social determinants of health that impacted care today? How? (Homelessness, low income, unemployed, alcoholism, drug addiction, transportation, low edu. Level, literacy, decrease access to med. care, long-term, rehab)? @ -No Was there de-escalation of care discussed even if they declined (Discuss DNR or withdrawal of care, Hospice)? DNR status @ -No What co-morbidities impacted this encounter? (DM, HTN, Smoking, COPD, CAD, Cancer, CVA, ARF, Chemo, Hep., AIDS, mental health diagnosis, sleep apnea, morbid obesity)? @ -None Was patient admitted / discharged? Hospital course, mention meds given and route, prescriptions, significant lab abnormalities, going to OR and other pe rtinent info. @ -Patient has influenza A. Patient's sodium is slightly low as is potassium. Patient has been too weak to get up and even make it to the bathroom over the last couple of days so patient will be admitted overnight will be hydrated and sodium and potassium will be replaced. Undiagnosed new problem with uncertain prognosis? @ -No Drug Therapy requiring intensive monitoring for toxicity (Heparin, Nitro, Insulin, Cardizem)? @ -No Were any procedures done? @ -No Diagnosis/symptom? @ -Influenza A Acute, or Chronic, or Acute on Chronic? @ -Acute Uncomplicated (without systemic symptoms) or Complicated (systemic symptoms)? @ -Complicated Side effects of treatment? @ -No Exacerbation, Progression, or Severe Exacerbation? @ -No Poses a threat to life or bodily function? How? (Chest pain, USA, ND, pneumonia, PE, COPD, DKA, ARF, appy, cholecystitis, CVA, Diverticulitis, Homicidal, Rivera icidal, threat to staff... and all critical care pts) @ -No Diagnosis/symptom? @ -Hyponatremia, hypokalemia Acute, or Chronic, or Acute on Chronic? @ -Acute Uncomplicated (without systemic symptoms) or Complicated (systemic symptoms)? @ -complicated Side effects of treatment? @ -None Exacerbation, Progression, or Severe Exacerbation] @ -No Poses a threat to life or bodily function? @ -No - Lab Data Result diagrams: 06/08/24 14:00 06/08/24 14:00 Lab Results 06/08/24 06/08/24 06/08/24 Range/Units 14:00 14:00 14:00 WBC 9.6 (3.8-10.6) k/uL RBC 3.80 (3.80-5.40) m/uL Hgb 10.4 L (11.4-16.0) gm/dL Hct 33.6 L (34.0-46.0) % MCV 88.4 (80.0-100.0) fL MCH 27.4 (25.0-35.0) pg MCHC 31.1 (31.0-37.0) g/dL RDW 13.9 (11.5-15.5) % Plt Count 316 (150-450) k/uL MPV 8.0 Neutrophils % 88 % Lymphocytes % 7 % Monocytes % 3 % Eosinophils % 1 % Basophils % 0 % Neutrophils # 8.4 H (1.3-7.7) k/uL Lymphocytes # 0.7 L (1.0-4.8) k/uL Monocytes # 0.3 (0-1.0) k/uL Eosinophils # 0.1 (0-0.7) k/uL Basophils # 0.0 (0-0.2) k/uL Hypochromasia Slight PT 11.0 (10.0-12.5) sec INR 1.0 (<1.2) APTT 19.6 L (22.0-30.0) sec Sodium 131 L (137-145) mmol/L Potassium 3.4 L (3.5-5.1) mmol/L Chloride 98 (98-107) mmol/L Carbon Dioxide 20 L (22-30) mmol/L Anion Gap 13 mmol/L BUN 20 H (7-17) mg/dL Creatinine 0.93 (0.52-1.04) mg/dL Est GFR (CKD-EPI)AfAm 71 (>60 ml/min/1.73 sqM) Est GFR (CKD-EPI)NonAf 62 (>60 ml/min/1.73 sqM) Glucose 313 H (74-99) mg/dL Plasma Lactic Acid Selvin (0.7-2.0) mmol/L Calcium 8.3 L (8.4-10.2) mg/dL Magnesium 1.7 (1.6-2.3) mg/dL Total Bilirubin 0.4 (0.2-1.3) mg/dL AST 28 (14-36) U/L ALT 17 (4-34) U/L Alkaline Phosphatase 177 H (38-126) U/L Troponin I (0.000-0.034) ng/mL Total Protein 6.0 L (6.3-8.2) g/dL Albumin 3.1 L (3.5-5.0) g/dL Urine Color Urine Appearance (Clear) Urine pH (5.0-8.0) Ur Specific Crawford (1.001-1.035) Urine Protein (Negative) Urine Glucose (UA) (Negative) Urine Ketones (Negative) Urine Blood (Negative) Urine Nitrite (Negative) Urine Bilirubin (Negative) Urine Urobilinogen (<2.0) mg/dL Ur Leukocyte Esterase (Negative) Influenza Type A (PCR) (Not Detectd) Influenza Type B (PCR) (Not Detectd) RSV (PCR) (Not Detectd) SARS-CoV-2 (PCR) (Not Detectd) 06/08/24 06/08/24 06/08/24 Range/Units 14:00 14:00 14:00 WBC (3.8-10.6) k/uL RBC (3.80-5.40) m/uL Hgb (11.4-16.0) gm/dL Hct (34.0-46.0) % MCV (80.0-100.0) fL MCH (25.0-35.0) pg MCHC (31.0-37.0) g/dL RDW (11.5-15.5) % Plt Count (150-450) k/uL MPV Neutrophils % % Lymphocytes % % Monocytes % % Eosinophils % % Basophils % % Neutrophils # (1.3-7.7) k/uL Lymphocytes # (1.0-4.8) k/uL Monocytes # (0-1.0) k/uL Eosinophils # (0-0.7) k/uL Basophils # (0-0.2) k/uL Hypochromasia PT (10.0-12.5) sec INR (<1.2) APTT (22.0-30.0) sec Sodium (137-145) mmol/L Potassium (3.5-5.1) mmol/L Chloride (98-107) mmol/L Carbon Dioxide (22-30) mmol/L Anion Gap mmol/L BUN (7-17) mg/dL Creatinine (0.52-1.04) mg/dL Est GFR (CKD-EPI)AfAm (>60 ml/min/1.73 sqM) Est GFR (CKD-EPI)NonAf (>60 ml/min/1.73 sqM) Glucose (74-99) mg/dL Plasma Lactic Acid Selvin 1.0 (0.7-2.0) mmol/L Calcium (8.4-10.2) mg/dL Magnesium (1.6-2.3) mg/dL Total Bilirubin (0.2-1.3) mg/dL AST (14-36) U/L ALT (4-34) U/L Alkaline Phosphatase (38-126) U/L Troponin I 0.014 (0.000-0.034) ng/mL Total Protein (6.3-8.2) g/dL Albumin (3.5-5.0) g/dL Urine Color Urine Appearance (Clear) Urine pH (5.0-8.0) Ur Specific Crawford (1.001-1.035) Urine Protein (Negative) Urine Glucose (UA) (Negative) Urine Ketones (Negative) Urine Blood (Negative) Urine Nitrite (Negative) Urine Bilirubin (Negative) Urine Urobilinogen (<2.0) mg/dL Ur Leukocyte Esterase (Negative) Influenza Type A (PCR) Detected A (Not Detectd) Influenza Type B (PCR) Not Detected (Not Detectd) RSV (PCR) Not Detected (Not Detectd) SARS-CoV-2 (PCR) Not Detected (Not Detectd) 06/08/24 Range/Units 14:32 WBC (3.8-10.6) k/uL RBC (3.80-5.40) m/uL Hgb (11.4-16.0) gm/dL Hct (34.0-46.0) % MCV (80.0-100.0) fL MCH (25.0-35.0) pg MCHC (31.0-37.0) g/dL RDW (11.5-15.5) % Plt Count (150-450) k/uL MPV Neutrophils % % Lymphocytes % % Monocytes % % Eosinophils % % Basophils % % Neutrophils # (1.3-7.7) k/uL Lymphocytes # (1.0-4.8) k/uL Monocytes # (0-1.0) k/uL Eosinophils # (0-0.7) k/uL Basophils # (0-0.2) k/uL Hypochromasia PT (10.0-12.5) sec INR (<1.2) APTT (22.0-30.0) sec Sodium (137-145) mmol/L Potassium (3.5-5.1) mmol/L Chloride (98-107) mmol/L Carbon Dioxide (22-30) mmol/L Anion Gap mmol/L BUN (7-17) mg/dL Creatinine (0.52-1.04) mg/dL Est GFR (CKD-EPI)AfAm (>60 ml/min/1.73 sqM) Est GFR (CKD-EPI)NonAf (>60 ml/min/1.73 sqM) Glucose (74-99) mg/dL Plasma Lactic Acid Selvin (0.7-2.0) mmol/L Calcium (8.4-10.2) mg/dL Magnesium (1.6-2.3) mg/dL Total Bilirubin (0.2-1.3) mg/dL AST (14-36) U/L ALT (4-34) U/L Alkaline Phosphatase (38-126) U/L Troponin I (0.000-0.034) ng/mL Total Protein (6.3-8.2) g/dL Albumin (3.5-5.0) g/dL Urine Color Light Yellow Urine Appearance Clear (Clear) Urine pH 5.5 (5.0-8.0) Ur Specific Crawford 1.017 (1.001-1.035) Urine Protein Trace H (Negative) Urine Glucose (UA) 3+ H (Negative) Urine Ketones 2+ H (Negative) Urine Blood Negative (Negative) Urine Nitrite Negative (Negative) Urine Bilirubin Negative (Negative) Urine Urobilinogen <2.0 (<2.0) mg/dL Ur Leukocyte Esterase Negative (Negative) Influenza Type A (PCR) (Not Detectd) Influenza Type B (PCR) (Not Detectd) RSV (PCR) (Not Detectd) SARS-CoV-2 (PCR) (Not Detectd) Disposition Clinical Impression: Influenza, Hyponatremia, Hypokalemia, Dehydration Disposition: ADMITTED IP TO THIS HOSP Referrals: Garrick Edwards MD [Primary Care Provider] - 1-2 days Time of Disposition: 15:01
[2024-06-08 14:10] LABS: Basophils % (A) 0 %; Eosinophils # (A) 0.1 k/uL (0-0.7); Eosinophils % (A) 1 %; HCT 33.6 % (34.0-46.0); HGB 10.4 gm/dL (11.4-16.0); Hypochromasia Slight; Lymphocytes # (A) 0.7 k/uL (1.0-4.8); Lymphocytes % (A) 7 %; MCH 27.4 pg (25.0-35.0); MCHC 31.1 g/dL (31.0-37.0); MCV 88.4 fL (80.0-100.0); Monocytes # (A) 0.3 k/uL (0-1.0); Monocytes % (A) 3 %; Neutrophils # (A) 8.4 k/uL (1.3-7.7); Neutrophils % (A) 88 %; Platelet Count 316 k/uL (150-450); RDW 13.9 % (11.5-15.5); WBC 9.6 k/uL (3.8-10.6)
[2024-06-08] MEDS: SODIUM CHLORIDE 0.9% 1,000 ML IV STA (14:18)
[2024-06-08 14:33] LABS: ALT 17 U/L (4-34); AST 28 U/L (14-36); African American GFR (CKD) 71 (>60 ml/min/1.73 sqM); Albumin 3.1 g/dL (3.5-5.0); Alkaline Phosphatase 177 U/L (38-126); Anion Gap 13 mmol/L; Blood Urea Nitrogen 20 mg/dL (7-17); Calcium 8.3 mg/dL (8.4-10.2); Carbon Dioxide 20 mmol/L (22-30); Chloride 98 mmol/L (98-107); Glucose 313 mg/dL (74-99); Magnesium 1.7 mg/dL (1.6-2.3); Non-African American GFR(CKD) 62 (>60 ml/min/1.73 sqM); Potassium 3.4 mmol/L (3.5-5.1); Sodium 131 mmol/L (137-145); Total Bilirubin 0.4 mg/dL (0.2-1.3)
[2024-06-08 14:42] LABS: Partial Thromboplastin Time 19.6 sec (22.0-30.0)
[2024-06-08 14:45] LABS: Appearance,Urine Clear (Clear); Bilirubin,Urine Negative (Negative); Blood,Urine Negative (Negative); Color,Urine Light Yellow; Glucose,Urine (UA) 3+ (Negative); Leukocyte Esterase,Urine Negative (Negative); Nitrite,Urine Negative (Negative); PH, Urine 5.5 (5.0-8.0); Protein,Urine Trace (Negative); Specific Gravity,Urine 1.017 (1.001-1.035); Urobilinogen,Urine <2.0 mg/dL (<2.0)
[2024-06-08 14:46] LABS: Influenza A Detected (Not Detectd); Influenza B Not Detected (Not Detectd); RSV Not Detected (Not Detectd)
--- NOTE | 2024-06-08 14:48 | XR ---
EXAMINATION TYPE: XR chest 2V DATE OF EXAM: 06/08/2024 2:43 PM COMPARISON: None. CLINICAL INDICATION: Female, 73 years old with history of Weakness; [facility] TECHNIQUE: XR chest 2V Frontal and lateral views of the chest. FINDINGS: Lungs/Pleura: There is no evidence of pleural effusion, focal consolidation, or pneumothorax. Pulmonary vascularity: Unremarkable. Heart/mediastinum: Cardiomediastinal silhouette is unremarkable. Musculoskeletal: No acute osseous pathology. Other findings: None IMPRESSION: No acute cardiopulmonary disease/process. [facility], , 06/08/2024 2:45 PM
[2024-06-08 14:57] LABS: Ketones,Urine 2+ (Negative)
[2024-06-08] MEDS ORDERED: NALOXONE 0.4 MG/ML 1 ML VIAL IV PRN (15:15)
[2024-06-08] MEDS ORDERED: ONDANSETRON 4 MG/2 ML VIAL IVP PRN (15:15)
[2024-06-08] MEDS ORDERED: DEXTROSE 50% SYRINGE 50 ML IVP PRN ×2 (15:29)
[2024-06-08] MEDS: POTASSIUM CHLORIDE ER 20 MEQ TAB.ER PO STA (15:35)
[2024-06-08] MEDS: ENOXAPARIN 40 MG/0.4 ML SYRINGE SQ SCH (15:35)
[2024-06-08] MEDS: SODIUM CHLORIDE 0.9% 1,000 ML IV ONE (15:35)
--- NOTE | 2024-06-08 16:12 | P.HPIM ---
History of Present Illness H&P Date: 06/08/24 I have seen and evaluated the patient today. Discussed with the resident and agree with the residents finding and plan as documented in the resident's note. Changes highlighted in blue font. Patient is a 73-year-old female with diabetes, seizure disorder, hypothyroidism (no home meds) here for generalized weakness. Patient reported that she has been experiencing generalized weakness for about 1 week and has worsened in the last 4 days. She had associated vomiting that was nonbilious and nonbloody that occurred once yesterday. She also developed diarrhea and productive cough today. She denied fever, chills, recent illness, recent hospitalization, focal weakness, changes in sensation, changes in vision, changes in speech, facial asymmetry, tremors, loss of consciousness, recent trauma, weight loss, shortness of breath, chest pain, palpitations, abdominal pain, changes in urination. On admission, chest x-ray showed no acute cardiopulmonary process/disease. EKG independently interpreted showed sinus rhythm with a rate of 99, normal axis, no ST-T changes, QTc 401 MS. Labs on admission showed WBC 9.6, hemoglobin 10.4, platelet count 316, PT 11, INR 1, PTT 19.6, sodium 131, potassium 3.4, chloride 98, bicarb 20, BUN 20, creatinine 0.93, glucose 313, plasma lactic acid 1, calcium 8.3, magnesium 1.7, total bilirubin 0.4, AST 28, ALT 17, alk phos 117, troponin 1.0 14, albumin 3.1. Urinalysis showed trace protein, +3 glucose, +3 ketones, negative nitrites, negative leukocyte Estrace. Respiratory viral panel showed positive for influenza A. Vitals on admission showed temperature 99.4, pulse rate 104, respiratory rate 18, blood pressure 166/66, O2 saturation 96% on room air ED documentation reviewed. 1 L bolus of 0.9 normal saline and potassium chloride 40 mEq given in the ED. Review of systems: Pertinent positives and negatives as discussed in HPI, a complete review of systems was performed and all other systems are negative. Social history: Tobacco: Never smoker Alcohol: Denies alcohol intake Recreational drugs: No history with illicit or recreational drug use Travel: No recent travel Physical examination: Vital signs reviewed General: non toxic, no distress, appears at stated age Derm: no unusual rashes/lesions, warm Head: atraumatic, normocephalic, symmetric Eyes: EOMI, anicteric sclera, pupils equal round reactive to light ENT: Nose and ears atraumatic Neck: No cervical lymphadenopathy, trachea midline, supple Mouth: no lip lesion, mucus membranes moist Cardiovascular: S1S2 reg, no murmur Lungs: Bibasilar crackles heard better in right than left lung romero, no rhonchi, no rales, no accessory muscle use Abdominal: soft, nondistended, nontender to palpation, no guarding Ext: muscle strength 5 out of 5 in all 4 distal and proximal extremities grossly , no gross muscle atrophy, no contractures, positive dorsalis pedis pulse bilateral, no edema Neuro: CN II-XI grossly intact, no gross focal neuro deficits Psych: Alert and oriented x 3, appropriate affect and mood Assessment/Plan: 73-year-old female with history of diabetes, hypothyroidism here for generalized weakness. Found to be influenza A positive on admission and here for further management. #. Debility #. Hyponatremia -Sodium 131 -Patient hemodynamically stable -Continue with 0.9 normal saline 100 cc/h -Monitor BMP -Patient mentions she has no medications for hypothyroidism. Check TSH -Fall precautions -Consult PT OT #. Influenza A -Supplemental oxygen as needed -Oseltamavir 75 mg p.o. twice daily for 5 days -Monitor vitals #. Hypokalemia -Potassium 3.4, magnesium 1.7 -EKG independently interpreted showed sinus rhythm with a rate of 99, normal axis, no ST-T changes, QTc 401 MS. -Potassium chloride 40 mEq given in the ED -Recheck potassium after repletion #. Diabetes with hyperglycemia -Glucose 313 -Held home insulin -Insulin sliding scale ACHS -Glucose Accu-Cheks ACHS. Monitor for hypoglycemia. Continue basal bolus regimen with Lantus 10 HS and meal time humalog 5 -Monitor BMP -Check A1c #. Normocytic anemia -Hemoglobin 10.4, baseline normal in 2023 -Check iron studies -Monitor CBC #. Elevated ALP -Patient stable and asymptomatic -Trend CMP Chronic Conditions: #. Hypertension #. Seizure disorder #. Hypothyroidism -Resume home Vimpat, Zoloft, Lipitor, amlodipine 5 mg daily, and valsartan HCTZ p.o. daily -Will resume home aspirin for now. Patient is unaware why she is on this medication F: 0.9 normal saline 100 cc/h E: Monitor sodium and potassium N: Consistent carbohydrate diet A: Ambulate with assistance DVT ppx: Lovenox 40 mg subcu daily Dispo: The patient is admitted with an anticipated greater than 2 midnight stay for evaluation of debility and electrolyte imbalance CODE STATUS: DNR Discussed with: Patient Anticipated discharge place: Home Linda Chapin MD PGY-1 IM Dictation was produced using [employer] dictation software. please excuse any grammatical, word or spelling errors. Past Medical History Past Medical History: Diabetes Mellitus, Seizure Disorder, Thyroid Disorder History of Any Multi-Drug Resistant Organisms: None Reported Additional Past Surgical History / Comment(s): trach Past Psychological History: No Psychological Hx Reported Smoking Status: Never smoker Past Alcohol Use History: None Reported Past Drug Use History: None Reported Medications and Allergies Home Medications Medication Instructions Recorded Confirmed Type Lacosamide [Vimpat] 200 mg PO BID 08/27/18 06/08/24 History Valsartan/Hydrochlorothiazide 1 tab PO DAILY 08/27/18 06/08/24 History [Valsartan-Hctz 320-25 mg Tab] amLODIPine [Norvasc] 5 mg PO DAILY 08/27/18 06/08/24 History Atorvastatin Calcium [Lipitor] 20 mg PO DAILY 07/17/19 06/08/24 History Insulin Lispro [humaLOG Kwikpen] 16 units SQ AC-TID 07/17/19 06/08/24 History Aspirin EC [Ecotrin Low Dose] 81 mg PO DAILY 06/08/24 06/08/24 History Cholecalciferol [Vitamin D3 (25 25 mcg PO DAILY 06/08/24 06/08/24 History Mcg = 1000 Iu)] Insulin Glargine,Hum.rec.anlog 10 units SQ HS 06/08/24 06/08/24 History [Lantus Solostar Pen] Sertraline [Zoloft] 50 mg PO DAILY 06/08/24 06/08/24 History Allergies Allergy/AdvReac Type Severity Reaction Status Date / Time No Known Allergies Allergy Verified 06/08/24 15:21 Physical Exam Vitals: Vital Signs Temp Pulse Resp BP Pulse Ox 06/08/24 13:19 99.4 F 104 H 18 166/66 96 Intake and Output 06/08/24 06/08/24 06/08/24 06:59 14:59 22:59 Other: Weight 55.792 kg Results CBC & Chem 7: 06/08/24 14:00 06/08/24 14:00 Labs: Abnormal Lab Results - Last 24 Hours (Table) 06/08/24 06/08/24 06/08/24 Range/Units 14:00 14:00 14:00 Hgb 10.4 L (11.4-16.0) gm/dL Hct 33.6 L (34.0-46.0) % Neutrophils # 8.4 H (1.3-7.7) k/uL Lymphocytes # 0.7 L (1.0-4.8) k/uL APTT 19.6 L (22.0-30.0) sec Sodium 131 L (137-145) mmol/L Potassium 3.4 L (3.5-5.1) mmol/L Carbon Dioxide 20 L (22-30) mmol/L BUN 20 H (7-17) mg/dL Glucose 313 H (74-99) mg/dL Calcium 8.3 L (8.4-10.2) mg/dL Alkaline Phosphatase 177 H (38-126) U/L Total Protein 6.0 L (6.3-8.2) g/dL Albumin 3.1 L (3.5-5.0) g/dL Urine Protein (Negative) Urine Glucose (UA) (Negative) Urine Ketones (Negative) Influenza Type A (PCR) (Not Detectd) 06/08/24 06/08/24 Range/Units 14:00 14:32 Hgb (11.4-16.0) gm/dL Hct (34.0-46.0) % Neutrophils # (1.3-7.7) k/uL Lymphocytes # (1.0-4.8) k/uL APTT (22.0-30.0) sec Sodium (137-145) mmol/L Potassium (3.5-5.1) mmol/L Carbon Dioxide (22-30) mmol/L BUN (7-17) mg/dL Glucose (74-99) mg/dL Calcium (8.4-10.2) mg/dL Alkaline Phosphatase (38-126) U/L Total Protein (6.3-8.2) g/dL Albumin (3.5-5.0) g/dL Urine Protein Trace H (Negative) Urine Glucose (UA) 3+ H (Negative) Urine Ketones 2+ H (Negative) Influenza Type A (PCR) Detected A (Not Detectd)
[2024-06-08 17:18] LABS: Glucose,Whole Blood 347 mg/dL (70-110)
[2024-06-08] MEDS: INSULIN LISPRO (HumaLOG) 100 UNIT/ML 10 mL VL SQ SCH ×2 (17:28→17:38)
[2024-06-08 21:15] LABS: Glucose,Whole Blood 195 mg/dL (70-110)
[2024-06-08] MEDS: LACOSAMIDE 150 MG TABLET PO SCH (22:23)
[2024-06-08] MEDS: OSELTAMIVIR 30 MG CAP PO SCH (22:23)
[2024-06-08] MEDS: INSULIN GLARGINE (LANTUS) 100 UNIT/ML SYR SQ SCH (22:23)
[2024-06-08] MEDS: LACOSAMIDE 50 MG TABLET PO SCH (22:23)
[2024-06-08] MEDS: ACETAMINOPHEN TAB 325 MG TAB PO PRN (22:30)
[2024-06-09 06:37] LABS: Glucose,Whole Blood 87 mg/dL (70-110)
[2024-06-09] MEDS: CHOLECALCIFEROL 25 MCG (1000 IU) TABLET PO SCH (07:50)
[2024-06-09] MEDS: ATORVASTATIN 20 MG TAB PO SCH (07:50)
[2024-06-09] MEDS: SERTRALINE 50 MG TAB PO SCH (07:50)
[2024-06-09] MEDS: ASPIRIN 81 MG PO SCH (07:50)
[2024-06-09] MEDS: amLODIPine 5 MG TAB PO SCH (07:50)
[2024-06-09] MEDS: VALSARTAN 160 MG TAB PO SCH (07:51)
[2024-06-09] MEDS ORDERED: hydroCHLOROthiazide 25 MG TAB PO SCH (09:00)
[2024-06-09 09:47] LABS: ALT 17 U/L (4-34); AST 35 U/L (14-36); African American GFR (CKD) 88 (>60 ml/min/1.73 sqM); Albumin 3.1 g/dL (3.5-5.0); Alkaline Phosphatase 160 U/L (38-126); Anion Gap 7 mmol/L; Blood Urea Nitrogen 13 mg/dL (7-17); Calcium 8.4 mg/dL (8.4-10.2); Carbon Dioxide 25 mmol/L (22-30); Chloride 103 mmol/L (98-107); Glucose 78 mg/dL (74-99); Non-African American GFR(CKD) 76 (>60 ml/min/1.73 sqM); Potassium 3.6 mmol/L (3.5-5.1); Sodium 135 mmol/L (137-145); Total Bilirubin 0.4 mg/dL (0.2-1.3); Total Protein 6.1 g/dL (6.3-8.2)
[2024-06-09 10:27] LABS: Basophils % (A) 0 %; Eosinophils # (A) 0.1 k/uL (0-0.7); Eosinophils % (A) 2 %; HCT 30.8 % (34.0-46.0); HGB 9.6 gm/dL (11.4-16.0); Hypochromasia Moderate; Lymphocytes # (A) 0.7 k/uL (1.0-4.8); Lymphocytes % (A) 13 %; MCH 27.8 pg (25.0-35.0); MCHC 31.3 g/dL (31.0-37.0); MCV 88.9 fL (80.0-100.0); Mean Platelet Volume 8.1; Monocytes # (A) 0.2 k/uL (0-1.0); Monocytes % (A) 5 %; Neutrophils # (A) 3.9 k/uL (1.3-7.7); Neutrophils % (A) 78 %; Platelet Count 284 k/uL (150-450); RBC 3.46 m/uL (3.80-5.40); RDW 13.9 % (11.5-15.5); WBC 4.9 k/uL (3.8-10.6)
--- NOTE | 2024-06-09 11:35 | P.PN ---
Subjective Progress Note Date: 06/09/24 Hospital Course: Patient is a 73-year-old female with diabetes, seizure disorder, hypothyroidism (no home meds) here for generalized weakness. Patient reported that she has been experiencing generalized weakness for about 1 week and has worsened in the last 4 days. She had associated vomiting that was nonbilious and nonbloody that occurred once yesterday. She also developed diarrhea and productive cough today. She denied fever, chills, recent illness, recent hospitalization, focal weakness, changes in sensation, changes in vision, changes in speech, facial asymmetry, tremors, loss of consciousness, recent trauma, weight loss, shortness of breath, chest pain, palpitations, abdominal pain, changes in urination. On admission, chest x-ray showed no acute cardiopulmonary process/disease. EKG independently interpreted showed sinus rhythm with a rate of 99, normal axis, no ST-T changes, QTc 401 MS. Labs on admission showed WBC 9.6, hemoglobin 10.4, platelet count 316, PT 11, INR 1, PTT 19.6, sodium 131, potassium 3.4, chloride 98, bicarb 20, BUN 20, creatinine 0.93, glucose 313, plasma lactic acid 1, calcium 8.3, magnesium 1.7, total bilirubin 0.4, AST 28, ALT 17, alk phos 117, troponin 1.0 14, albumin 3.1. Urinalysis showed trace protein, +3 glucose, +3 ketones, negative nitrites, negative leukocyte Estrace. Respiratory viral panel showed positive for influenza A. Vitals on admission showed temperature 99.4, pulse rate 104, respiratory rate 18, blood pressure 166/66, O2 saturation 96% on room air Patient admitted for management of generalized weakness, hyponatremia, influenza A, started on oral Tamiflu, PT OT consulted, will likely need placement. TSH came back elevated, T4 pending, She lives with her daughter, uses walker Subjective: Seen and examined at bedside, denies shortness of breath, chest pain, has not tried to get up out of the bed, was encouraged to do so Pertinent positives and negatives as discussed above, a complete review of systems was performed and all other systems are negative. Vitals Signs Reviewed. General: [nontoxic], [no distress], [appears at stated age] Derm: [warm], [dry] Head: [atraumatic], [normocephalic], [symmetric] Eyes: [EOMI], [no lid lag], [anicteric sclera] Mouth: [no lip lesion], [mucus membranes moist] Cardiovascular: [S1S2 reg], [no murmur] Lungs: [CTA bilateral], [no rhonchi, no rales] , [no accessory muscle use] Abdominal: [soft], [ nontender to palpation], [no guarding], [no appreciable organomegaly] Ext: [no gross muscle atrophy], [no edema], [no contractures] Neuro: [ CN II-XI grossly intact], [no focal neuro deficits] Psych: [Alert], [oriented], [appropriate affect] Data Reviewed Today: Pertinent Labs: Hemoglobin 9.6, normal WBC and platelet count, sodium 135, potassium 3.6, creatinine normal and stable, glucose is controlled, ALP trending down Assessment and Plan Debility Hyponatremia -Sodium 131->135 -Patient hemodynamically stable -Continue with 0.9 normal saline 100 cc/h -Monitor BMP -Patient mentions she has no medications for hypothyroidism. Check TSH -Fall precautions -Consult PT OT Influenza A -Supplemental oxygen as needed -Oseltamavir 75 mg p.o. twice daily for 5 days -Monitor vitals Hypokalemia -Potassium 3.4, magnesium 1.7 -EKG independently interpreted showed sinus rhythm with a rate of 99, normal axis, no ST-T changes, QTc 401 MS. -Potassium chloride 40 mEq given in the ED -Recheck potassium after repletion Diabetes with hyperglycemia -Insulin sliding scale ACHS -Glucose Accu-Cheks ACHS. Monitor for hypoglycemia. Continue basal bolus regimen with Lantus 8HS and meal time humalog 3, dose decreased -Monitor BMP -Check A1c Normocytic anemia -Hemoglobin 10.4, baseline normal in 2023 -Check iron studies, pedning -Monitor CBC Elevated ALP -Patient stable and asymptomatic -Trend CMP, ALP tredning down Chronic Conditions: Hypertension Seizure disorder Hypothyroidism -Resume home Vimpat, Zoloft, Lipitor, amlodipine 5 mg daily, and valsartan HCTZ p.o. daily -Will resume home aspirin for now. Patient is unaware why she is on this medication -pending T4 DVT ppx: Lovenox 40 mg subcu daily CODE STATUS: DNR Discussed with: Patient Anticipated discharge place: TBD Anticipated discharge time; stable for discharge, pending Ptot and placement p ossibly Objective - Vital Signs Vital signs: Vital Signs Temp 99.3 F 06/09/24 07:33 Pulse 87 06/09/24 07:33 Resp 19 06/09/24 07:33 BP 143/70 06/09/24 07:33 Pulse Ox 94 L 06/09/24 07:33 FiO2 Intake & Output 06/08/24 06/09/24 06/09/24 18:59 06:59 18:59 Weight 55.792 kg Other: Voiding Method Bedside Commode # Voids 0 # Bowel Movements 1 0 - Labs CBC & Chem 7: 06/09/24 10:15 06/09/24 08:00 Labs: Abnormal Lab Results - Last 24 Hours (Table) 06/08/24 06/08/24 06/08/24 Range/Units 14:00 14:00 14:00 RBC (3.80-5.40) m/uL Hgb 10.4 L (11.4-16.0) gm/dL Hct 33.6 L (34.0-46.0) % Neutrophils # 8.4 H (1.3-7.7) k/uL Lymphocytes # 0.7 L (1.0-4.8) k/uL APTT 19.6 L (22.0-30.0) sec Sodium 131 L (137-145) mmol/L Potassium 3.4 L (3.5-5.1) mmol/L Carbon Dioxide 20 L (22-30) mmol/L BUN 20 H (7-17) mg/dL Glucose 313 H (74-99) mg/dL POC Glucose (mg/dL) (70-110) mg/dL Calcium 8.3 L (8.4-10.2) mg/dL Alkaline Phosphatase 177 H (38-126) U/L Total Protein 6.0 L (6.3-8.2) g/dL Albumin 3.1 L (3.5-5.0) g/dL TSH (0.465-4.680) mIU/L Urine Protein (Negative) Urine Glucose (UA) (Negative) Urine Ketones (Negative) Influenza Type A (PCR) (Not Detectd) 06/08/24 06/08/24 06/08/24 Range/Units 14:00 14:32 17:14 RBC (3.80-5.40) m/uL Hgb (11.4-16.0) gm/dL Hct (34.0-46.0) % Neutrophils # (1.3-7.7) k/uL Lymphocytes # (1.0-4.8) k/uL APTT (22.0-30.0) sec Sodium (137-145) mmol/L Potassium (3.5-5.1) mmol/L Carbon Dioxide (22-30) mmol/L BUN (7-17) mg/dL Glucose (74-99) mg/dL POC Glucose (mg/dL) 347 H (70-110) mg/dL Calcium (8.4-10.2) mg/dL Alkaline Phosphatase (38-126) U/L Total Protein (6.3-8.2) g/dL Albumin (3.5-5.0) g/dL TSH (0.465-4.680) mIU/L Urine Protein Trace H (Negative) Urine Glucose (UA) 3+ H (Negative) Urine Ketones 2+ H (Negative) Influenza Type A (PCR) Detected A (Not Detectd) 06/08/24 06/09/24 06/09/24 Range/Units 21:14 08:00 08:00 RBC (3.80-5.40) m/uL Hgb (11.4-16.0) gm/dL Hct (34.0-46.0) % Neutrophils # (1.3-7.7) k/uL Lymphocytes # (1.0-4.8) k/uL APTT (22.0-30.0) sec Sodium 135 L (137-145) mmol/L Potassium (3.5-5.1) mmol/L Carbon Dioxide (22-30) mmol/L BUN (7-17) mg/dL Glucose (74-99) mg/dL POC Glucose (mg/dL) 195 H (70-110) mg/dL Calcium (8.4-10.2) mg/dL Alkaline Phosphatase 160 H (38-126) U/L Total Protein 6.1 L (6.3-8.2) g/dL Albumin 3.1 L (3.5-5.0) g/dL TSH 8.710 H (0.465-4.680) mIU/L Urine Protein (Negative) Urine Glucose (UA) (Negative) Urine Ketones (Negative) Influenza Type A (PCR) (Not Detectd) 06/09/24 Range/Units 10:15 RBC 3.46 L (3.80-5.40) m/uL Hgb 9.6 L (11.4-16.0) gm/dL Hct 30.8 L (34.0-46.0) % Neutrophils # (1.3-7.7) k/uL Lymphocytes # 0.7 L (1.0-4.8) k/uL APTT (22.0-30.0) sec Sodium (137-145) mmol/L Potassium (3.5-5.1) mmol/L Carbon Dioxide (22-30) mmol/L BUN (7-17) mg/dL Glucose (74-99) mg/dL POC Glucose (mg/dL) (70-110) mg/dL Calcium (8.4-10.2) mg/dL Alkaline Phosphatase (38-126) U/L Total Protein (6.3-8.2) g/dL Albumin (3.5-5.0) g/dL TSH (0.465-4.680) mIU/L Urine Protein (Negative) Urine Glucose (UA) (Negative) Urine Ketones (Negative) Influenza Type A (PCR) (Not Detectd)
[2024-06-09 11:40] LABS: Glucose,Whole Blood 167 mg/dL (70-110)
[2024-06-09] MEDS: INSULIN LISPRO (HumaLOG) 100 UNIT/ML 10 mL VL SQ SCH (13:31)
[2024-06-09 14:08] LABS: % Iron Saturation 6.01 (12.00-45.00)
[2024-06-09 16:29] LABS: Glucose,Whole Blood 300 mg/dL (70-110)
[2024-06-09 21:12] LABS: Glucose,Whole Blood 116 mg/dL (70-110)
[2024-06-09] MEDS: INSULIN GLARGINE (LANTUS) 100 UNIT/ML SYR SQ SCH (22:03)
[2024-06-10 06:50] LABS: Glucose,Whole Blood 101 mg/dL (70-110)
[2024-06-10 08:05] VITALS: BP 153/73; PULSE 81; RESP 17; TEMP 98.9
[2024-06-10 10:26] LABS: Basophils # (A) 0.02 X 10*3/uL (0.00-0.10); Basophils % (A) 0.4 %; Eosinophils % (A) 1.9 %; HGB 9.7 g/dL (12.0-15.0); Lymphocytes # (A) 1.44 X 10*3/uL (0.90-5.00); MCH 26.9 pg (27.0-32.0); MCHC 30.3 g/dL (32.0-37.0); MCV 88.9 FL (80.0-97.0); Mean Platelet Volume 11.3 FL (9.5-12.2); Monocytes # (A) 0.32 X 10*3/uL (0.20-1.00); NRBC Per 100 WBC 0 X 10*3/uL (0.00-0.01); Neutrophils # (A) 3.42 X 10*3/uL (1.80-7.70); Neutrophils % (A) 64.1 %; Platelet Count 299 X 10*3/uL (140-440); RDW 14.3 % (11.5-14.5); WBC 5.33 X 10*3/uL (4.50-10.00)
[2024-06-10 11:09] LABS: Blood Urea Nitrogen 9.2 mg/dL (9.0-27.0); Calcium 8.2 mg/dL (8.7-10.3); Carbon Dioxide 23.5 mmol/L (21.6-31.8); Chloride 104 mmol/L (96-109); Glucose 80 mg/dL (70-110); Potassium 3.3 mmol/L (3.5-5.5); Sodium 140 mmol/L (135-145)
[2024-06-10 11:35] LABS: Glucose,Whole Blood 264 mg/dL (70-110)
--- NOTE | 2024-06-10 17:33 | P.DS ---
Providers Date of admission: 06/08/24 15:03 Expected date of discharge: 06/10/24 Attending physician: Dk Rick Primary care physician: Garrick Medellin [place] Hospital Course: Hospital Course: Patient is a 73-year-old female with diabetes, seizure disorder, hypothyroidism (no home meds) here for generalized weakness. On admission, chest x-ray showed no acute cardiopulmonary process/disease. EKG independently interpreted showed sinus rhythm with a rate of 99, normal axis, no ST-T changes, QTc 401 MS. Labs on admission showed WBC 9.6, hemoglobin 10.4, platelet count 316, PT 11, INR 1, PTT 19.6, sodium 131, potassium 3.4, chloride 98, bicarb 20, BUN 20, creatinine 0.93, glucose 313, plasma lactic acid 1, calcium 8.3, magnesium 1.7, total bilirubin 0.4, AST 28, ALT 17, alk phos 117, troponin 1.0 14, albumin 3.1. Urinalysis showed trace protein, +3 glucose, +3 ketones, negative nitrites, negative leukocyte Estrace. Respiratory viral panel showed positive for influenza A. Vitals on admission showed temperature 99.4, pulse rate 104, respiratory rate 18, blood pressure 166/66, O2 saturation 96% on room air Patient is admitted for an evaluation of debility. She was found to have influenza A, hyponatremia and hypokalemia on admitting labs. Ordered fall precautions, IV fluids, TSH, oseltamavir p.o., potassium chloride for repletion, and PT OT consult. Patient symptoms improved throughout hospital stay. She had no complications throughout hospital stay. Patient is cleared for discharge today and is prescribed 3 more days of oseltamavir p.o., and insulin lispro doses was adjusted to 3 units AC 3 times daily. Patient advised to follow-up with PCP and home care on outpatient basis. Recommended follow-up chest x-ray and management of iron deficiency anemia on outpatient basis. Final Diagnosis: #. Debility #. Hyponatremia, resolved #. Influenza A infection #. Hypokalemia, resolved #. Diabetes #. Iron deficiency anemia #. Elevated ALP, stable #. Hypertension #. Seizure disorder #. Subclinical hypothyroidism Physical examination: Vital signs reviewed General: non toxic, no distress Derm: no unusual rashes/lesions, warm Head: atraumatic, normocephalic, symmetric Eyes: EOMI, anicteric sclera, pupils equal round reactive to light ENT: Nose and ears atraumatic Neck: No cervical lymphadenopathy, trachea midline, supple Mouth: no lip lesion, mucus membranes moist Cardiovascular: S1S2 reg, no murmur Lungs: CTA bilateral, no rhonchi, no rales, no accessory muscle use Abdominal: soft, nondistended, nontender to palpation, no guarding Ext: muscle strength 5 out of 5 in all 4 extremities grossly, no gross muscle atrophy, no contractures, positive dorsalis pedis pulse bilateral, no edema Neuro: CN II-XI grossly intact, no gross focal neuro deficits Psych: Alert, oriented, appropriate affect and mood A total of 36 minutes of time were spent preparing this complex discharge summary. Patient was discharged on 07/07/2024 at 923. I have seen and evaluated the patient today. Discussed with the resident and agree with the residents finding and plan as documented in the resident's note. Changes highlighted in blue font. Patient Condition at Discharge: Good Plan - Discharge Summary Discharge Rx Participant: No New Discharge Prescriptions: New Oseltamivir [Tamiflu] 30 mg PO Q12HR #3 cap Continue amLODIPine [Norvasc] 5 mg PO DAILY Valsartan/Hydrochlorothiazide [Valsartan-Hctz 320-25 mg Tab] 1 tab PO DAILY Lacosamide [Vimpat] 200 mg PO BID Atorvastatin Calcium [Lipitor] 20 mg PO DAILY Cholecalciferol [Vitamin D3 (25 Mcg = 1000 Iu)] 25 mcg PO DAILY Aspirin EC [Ecotrin Low Dose] 81 mg PO DAILY Sertraline [Zoloft] 50 mg PO DAILY Insulin Glargine,Hum.rec.anlog [Lantus Solostar Pen] 10 units SQ HS Changed Insulin Lispro [humaLOG Kwikpen] 3 units SQ AC-TID #0 Discharge Medication List Lacosamide [Vimpat] 200 mg PO BID 08/27/18 [History] Valsartan/Hydrochlorothiazide [Valsartan-Hctz 320-25 mg Tab] 1 tab PO DAILY 08/27/18 [History] amLODIPine [Norvasc] 5 mg PO DAILY 08/27/18 [History] Atorvastatin Calcium [Lipitor] 20 mg PO DAILY 07/17/19 [History] Aspirin EC [Ecotrin Low Dose] 81 mg PO DAILY 06/08/24 [History] Cholecalciferol [Vitamin D3 (25 Mcg = 1000 Iu)] 25 mcg PO DAILY 06/08/24 [History] Insulin Glargine,Hum.rec.anlog [Lantus Solostar Pen] 10 units SQ HS 06/08/24 [History] Sertraline [Zoloft] 50 mg PO DAILY 06/08/24 [History] Insulin Lispro [humaLOG Kwikpen] 3 units SQ AC-TID #0 06/10/24 [Rx] Oseltamivir [Tamiflu] 30 mg PO Q12HR #3 cap 06/10/24 [Rx] Follow up Appointment(s)/Referral(s): [facility], [NON-STAFF] - As Needed Garrick Edwards MD [Primary Care Provider] - 06/13/24 11:15 am (With Del) Patient Instructions/Handouts: Influenza (DC) Activity/Diet/Wound Care/Special Instructions: Please see PCP on outpatient. Recommend repeat chest xray on follow up Discharge Disposition: HOME SELF-CARE
== END 2024-06-10 14:46 | disposition home or self-care (01) ==
LOC: EC 13:11 → 4SSUR 15:03
PROVIDERS: ADMIT Student in an Organized Health Care Education/Training Program; ATTEND Student in an Organized Health Care Education/Training Program
DX: J10.1 Influenza due to other identified influenza virus with other respiratory manifestations (principal); E86.0 Dehydration; E87.1 Hypo-osmolality and hyponatremia; E87.6 Hypokalemia; D50.9 Iron deficiency anemia, unspecified; E03.8 Other specified hypothyroidism; E11.65 Type 2 diabetes mellitus with hyperglycemia; G40.909 Epilepsy, unspecified, not intractable, without status epilepticus; I10 Essential (primary) hypertension; Z66 Do not resuscitate; Z79.4 Long term (current) use of insulin; Z79.82 Long term (current) use of aspirin; Z79.899 Other long term (current) drug therapy
CPT/HCPCS: 96361 ×3; 96372 ×3; 96360; 99285; 36415; 93005; 97162; 97166; 84439; 80053 ×2; 80048; 84443; 83540; 83550; 83605; 83735; 84484; 85025 ×3; 85610; 85730; 81003; 83036; 84145; 87636; 71046; G0378 ×3; J1650 ×3